=== PATIENT | male | born 1955 | race Caucasian/White ===

== ENCOUNTER 2021-03-20 08:51 | Emergency (ER) | payer OTHER, SELFPAY ==
--- NOTE | ~2021-03-20 | XR_ITS ---
EXAMINATION: XR foot RT min 3V DATE: 03/20/2021 09:20 INDICATION: Right first toe pain TECHNIQUE: Dorsoplantar, lateral, and 2 oblique views of the right foot were obtained. COMPARISON: None. FINDINGS: Bone alignment is normal. There is no fracture. There is mild osteoarthritis at the first m etatarsophalangeal and interphalangeal joints. The soft tissues are unremarkable. IMPRESSION: 1. Mild osteoarthritis. Reviewed, dictated and finalized at location A. IMPRESSION: 1. Mild osteoarthritis.
[2021-03-20 08:59] VITALS: BP 133/73; PULSE 65; RESP 16; TEMP 36.5; O2SAT 99
--- NOTE | 2021-03-20 08:59 | ED.GENADULT ---
HPI - General Adult General Chief complaint: Extremity Injury, Lower Stated complaint: right foot pain Source: patient and RN notes reviewed Mode of arrival: ambulatory Limitations: no limitations History of Present Illness HPI narrative: 65-year-old male presents today with complaints of right foot pain for the past 3 days. ?Kishor reports increasing pain daily, worst today being unable to wear regular shoes causing him to seek care. ?Tylenol 1,000mg three times a day, last taken on 03/19/2021 without relief. ?Hurts to bear weight. ?No radiation of pain. ?No numbness, tingling, or loss of mobility. ?Exacerbating factor applying weight. ?Denies inability to bear weight. ?Denies discoloration. ?Denies suspect foreign body. ?Denies fever or chills. ?Remains active. ?The patient reports he has not been diagnosed with COVID-19. ?The patient reports he is not waiting for the results of a COVID-19 lab test. The patient reports he does not have chills, weakness, or fatigue. ?The patient reports he does not have a new or worsening cough or shortness of breath. ?Denies chest pain. ?The patient reports he does not have any rhinorrhea, congestion, loss of taste or smell, sore throat, nausea, vomiting, abdominal pain, and diarrhea. ?Tolerating po intake well. ?Denies recent traveling. ?Denies concerns for COVID-19 or exposures. ?At this time, the patient is not suspected of having COVID-19. Some parts of this dictation were generated by voice recognition software and may contain typographical and/or grammatical inaccuracies. Related Data Home Medications Medication Instructions Recorded Confirmed amlodipine 1 mg PO DAILY 03/20/21 03/20/21 doxazosin 1 mg PO DAILY 03/20/21 03/20/21 fluticasone propion-salmeterol 1 inh INHALATION BID 03/20/21 03/20/21 [Advair Diskus] metoprolol succinate 1 mg PO DAILY 03/20/21 03/20/21 quinapril 1 mg PO DAILY 03/20/21 03/20/21 rivaroxaban [Xarelto] 1 mg PO DAILY 03/20/21 03/20/21 Allergies Allergy/AdvReac Type Severity Reaction Status Date / Time iodine Allergy Mild UNKNOWN Verified 03/20/21 09:05 sulfamethoxazole Allergy Unknown RASH ON Verified 03/20/21 09:05 PALMS trimethoprim Allergy Unknown RASH ON Verified 03/20/21 09:05 PALMS Contrast Media Allergy Mild Dizziness Uncoded 03/20/21 09:05 Review of Systems Review of Systems: Narrative: CONSTITUTIONAL: Denies fever, chills, sweats. EYES: Denies visual changes, redness, discharge. ENT: Denies rhinorrhea, congestion, sore throat, otalgia. CARDIOVASCULAR: Denies chest pain, palpitations, edema. RESPIRATORY: Denies dyspnea, wheezing, cough. GASTROINTESTINAL: Denies abdominal pain, nausea, vomiting, diarrhea. SKIN: Denies rash or itching. MUSCULOSKELETAL: Denies acute back pain or myalgia. Complains of pain right foot. NEUROLOGIC: Denies numbness or focal weakness. PSYCHIATRIC: Denies anxiety or depression. All other systems reviewed are negative, except as documented in HPI and below. [facility] Past Medical History Medical History (Updated 03/20/21 @ 09:41 by YANELI Das) Anxiety Atypical chest pain COPD (chronic obstructive pulmonary disease) Coronary artery disease Hyperthyroidism Mixed hyperlipidemia Paroxysmal atrial fibrillation Prediabetes Tobacco abuse Surgical History Surgical History H/O colonoscopy Social History Social History Smoking status: Current every day smoker Tobacco type: cigarettes Second hand tobacco smoke exposure: Yes (spouse) Alcohol intake: never Substance use: never Substance use type: does not use Living arrangements: with family Occupation/Education: retired Gender identity (if verbalized by the patient): Male Sexual Orientation (if Verbalized by the Patient): Straight or Heterosexual Comments At time of signature, agree with the nurse past medical, surgi
[2021-03-20] MEDS: KETOROLAC (*BKC) 60 MG/2 ML VIAL IM (09:19)
== END 2021-03-20 09:50 | disposition home or self-care (01) ==
PROVIDERS: Emergency Provider Nurse Practitioner Family; PCP Family Medicine
DX: M10.9 Gout, unspecified (principal); M19.071 Primary osteoarthritis, right ankle and foot; F17.210 Nicotine dependence, cigarettes, uncomplicated; J44.9 Chronic obstructive pulmonary disease, unspecified; I25.10 Atherosclerotic heart disease of native coronary artery without angina pectoris; E05.90 Thyrotoxicosis, unspecified without thyrotoxic crisis or storm; I48.0 Paroxysmal atrial fibrillation; R73.03 Prediabetes
CPT/HCPCS: 73630; 96372; 99213; G0463; J1885

== ENCOUNTER 2021-04-18 13:03 | Emergency (ER) | payer OTHER, SELFPAY ==
[2021-04-18 13:25] VITALS: BP 126/55; PULSE 63; RESP 16; TEMP 35.9; O2SAT 98
--- NOTE | 2021-04-18 13:26 | ED.GENADULT ---
HPI - General Adult General Chief complaint: Back Pain/Injury Stated complaint: lower back pain Time Seen by Provider: 04/18/21 13:15 Source: patient and RN notes reviewed Mode of arrival: ambulatory Limitations: no limitations History of Present Illness HPI narrative: 65-year-old male presents with complaints of intermittent right lower back pain for the past 30 days. ? Kishor reports increasing constant back pain over the past 2 weeks due to increasing heaving lifting while moving and fixing home. Tylenol, physician primary care sports medicine, and back massages with little to no relief. ?Denies new injuries or falls. Denies radiating pain, numbness, or tingling. Denies fever or chills. No upper or lower extremity pain or weakness. ?Exacerbating factors consist of heavy lifting, prolonged standing, and bending. Denies problems with urinating or having a bowel movement, LBM on 04/17/2021 per patient and normal. ?No flank pain or hematuria or dysuria. The patient reports he has not been diagnosed with COVID-19. The patient reports he is not waiting for the results of a COVID-19 lab test. The patient reports he does not have chills, weakness, or fatigue. The patient reports he does not have a new or worsening cough or shortness of breath. Denies chest pain. The patient reports he does not have any rhinorrhea, congestion, loss of taste or smell, sore throat, nausea, vomiting, abdominal pain, and diarrhea. Tolerating po intake well. Denies recent traveling. Denies concerns for COVID-19 or exposures. At this time, the patient is not suspected of having COVID-19. Some parts of this dictation were generated by voice recognition software and may contain typographical and/or grammatical inaccuracies. Related Data Home Medications Medication Instructions Recorded Confirmed amlodipine 1 mg PO DAILY 03/20/21 03/23/21 doxazosin 1 mg PO DAILY 03/20/21 03/23/21 fluticasone propion-salmeterol 1 inh INHALATION BID 03/20/21 03/23/21 [Advair Diskus] metoprolol succinate 1 mg PO DAILY 03/20/21 03/23/21 quinapril 1 mg PO DAILY 03/20/21 03/23/21 rivaroxaban 20 mg tablet 20 mg PO DAILY tablet 03/23/21 03/23/21 clonazepam 07/18/21 Allergies Allergy/AdvReac Type Severity Reaction Status Date / Time iodine Allergy Mild UNKNOWN Verified 03/20/21 09:05 sulfamethoxazole Allergy Unknown RASH ON Verified 03/20/21 09:05 PALMS trimethoprim Allergy Unknown RASH ON Verified 03/20/21 09:05 PALMS Contrast Media Allergy Mild Dizziness Uncoded 03/20/21 09:05 Review of Systems Review of Systems: Narrative: CONSTITUTIONAL: Denies fever, chills, sweats. EYES: Denies visual changes, redness, discharge. ENT: Denies rhinorrhea, congestion, sore throat, otalgia. CARDIOVASCULAR: Denies chest pain, palpitations, edema. RESPIRATORY: Denies dyspnea, wheezing, cough. GASTROINTESTINAL: Denies abdominal pain, nausea, vomiting, diarrhea. GENITOURINARY: Denies dysuria, hematuria, abnormal discharge. SKIN: Denies rash or itching. MUSCULOSKELETAL: Complaints of right lower back pain. Denies joint pain or myalgia. NEUROLOGIC: Denies numbness or focal weakness. PSYCHIATRIC: Denies anxiety or depression. All systems reviewed & are unremarkable except as noted in HPI and below. [facility], [facility] Past Medical History Medical History Anxiety Atypical chest pain COPD (chronic obstructive pulmonary disease) Coronary artery disease Hyperthyroidism Mixed hyperlipidemia Paroxysmal atrial fibrillation Prediabetes Tobacco abuse Surgical History Surgical History H/O colonoscopy Family History Family History (Updated 04/18/21 @ 13:58 by YANELI Das) Mother Lung cancer Father , [place] age 50 Acute myocardial infarction, Onset Age: 50 Social History Social History Tobacco type: cigare
[2021-04-18] MEDS: KETOROLAC (*BKC) 60 MG/2 ML VIAL IM (13:52)
== END 2021-04-18 14:13 | disposition home or self-care (01) ==
PROVIDERS: Emergency Provider Nurse Practitioner Family; PCP Family Medicine
DX: M54.5 Low back pain (principal); J44.9 Chronic obstructive pulmonary disease, unspecified; I25.10 Atherosclerotic heart disease of native coronary artery without angina pectoris; E05.90 Thyrotoxicosis, unspecified without thyrotoxic crisis or storm; E78.2 Mixed hyperlipidemia; I48.0 Paroxysmal atrial fibrillation
CPT/HCPCS: 96372; 99213; G0463; J1885

== ENCOUNTER 2021-07-14 08:24 | Outpatient (CLI) | payer MEDICARE, SELFPAY ==
--- NOTE | ~2021-07-14 | US_ITS ---
EXAMINATION: US aorta [facility] scrn DATE: 07/14/2021 09:05 INDICATION: Abdominal aortic aneurysm screening with risk factors of prior smoking and hypertension TECHNIQUE: Grayscale, color Doppler, and pulsed Doppler images of the aorta and common iliac arteries were obtained. COMPARISON: None. FINDINGS: The proximal aorta measures 2.5 cm in maximal AP diameter. The mid aorta measures 2.1 cm. The distal aorta measures 1.7 cm. The right common iliac artery measures 8 mm. The left common iliac artery bran ures 7 mm. IMPRESSION: 1. Normal caliber abdominal aorta. Reviewed, dictated and finalized at location A.
--- NOTE | ~2021-07-14 | CT_ITS ---
EXAMINATION:CT lung screening DATE: 07/14/2021 09:08 INDICATION: Personal history of tobacco dependence. Current smoker with 50 pack year history. TECHNIQUE: Computed tomography (CT) of the chest was performed without intravenous contrast. Automate d exposure control and iterative reconstruction technique were employed. The dose-length product (DLP ) was 125.13 mGy-cm. COMPARISON: Chest CT 09/06/2012 FINDINGS: There is moderate emphysema. There is a 2 mm nodule in left lower lobe. No pleural effusion . The heart size is normal. There are coronary artery calcifications. No pericardial effusion. There is mild thoracic spondylosis. There is a benign bone island in T11 vertebral body. IMPRESSION: 1. Lung-RADS category 2: Benign appearance or behavior. Continue annual screening with noncontrast lo w-dose chest CT in 12 months. Reviewed, dictated and finalized at location A. IMPRESSION: 1. Lung-RADS category 2: Benign appearance or behavior. Continue annual screeni ng with noncontrast low-dose chest CT in 12 months.
== END 2021-07-14 08:25 | disposition home or self-care (01) ==
LOC: ANHIMG 08:27
PROVIDERS: PCP Family Medicine; Visit Provider Family Medicine
DX: Z12.2 Encounter for screening for malignant neoplasm of respiratory organs (principal); Z13.6 Encounter for screening for cardiovascular disorders; Z87.891 Personal history of nicotine dependence
CPT/HCPCS: 71271; 76706

== ENCOUNTER 2021-07-30 01:48 | Day surgery (SDC) | payer MEDICARE, SELFPAY ==
[2021-07-15 15:10] VITALS: BMI 24.3
[2021-07-30 08:13] VITALS: BP 110/61; PULSE 66; RESP 16; TEMP 36.6; O2SAT 98; BMI 24.0
--- NOTE | 2021-07-30 08:21 | WPDANESEPPF ---
Anes - Initial Pre Proc Eval Procedure: Operation Date: 07/30/21 09:00 Proposed Procedures p Screening Colonoscopy - Alfred Sena MD Date/Time: 07/30/21 08:21 Surgeon: Alfred Sena MD Pre Op Diagnosis: neoplasm screening Patient Data Age: 66 Gender: M Height: 1.8 m Weight: 78.1 kg Last Vital Signs Temp 36.6 C 07/30/21 08:13 Pulse 66 07/30/21 08:13 Resp 16 07/30/21 08:13 BP 110/61 07/30/21 08:13 Pulse Ox 98 07/30/21 08:13 Allergies Allergy/AdvReac Type Severity Reaction Status Date / Time iodine Allergy Intermediate Hypotension Verified 07/30/21 08:12 sulfamethoxazole Allergy Intermediate RASH ON Verified 07/30/21 08:12 PALMS trimethoprim Allergy Intermediate RASH ON Verified 07/30/21 08:12 PALMS Contrast Media Allergy Intermediate Hypotension Uncoded 07/30/21 08:12 Home Medications Medication Instructions Recorded Confirmed Type amlodipine 10 mg PO DAILY 03/20/21 07/30/21 History doxazosin 2 mg PO DAILY 03/20/21 07/30/21 History fluticasone propion-salmeterol 1 inh INHALATION BID 03/20/21 07/30/21 History [Advair Diskus] metoprolol succinate 25 mg PO DAILY 03/20/21 07/30/21 History quinapril 40 mg PO DAILY 03/20/21 07/30/21 History rivaroxaban 20 mg tablet 20 mg PO DAILY tablet 03/23/21 07/30/21 History clonazepam 1 mg tablet 0.5 mg PO BID PRN #60 tablet 06/22/21 07/30/21 Rx montelukast 10 mg tablet 10 mg PO DAILY #90 tablet 06/22/21 07/30/21 Rx tiotropium bromide 18 mcg capsule 1 cap INHALATION DAILY #90 inh 06/22/21 07/30/21 Rx with inhalation device Patient hx anesthesia problems: none Family hx anesthesia problems: none Results Review: All pre-operative results and documents have been reviewed as part of the pre-operative evaluation. [facility] Past Medical History Medical History Anxiety Atypical chest pain COPD (chronic obstructive pulmonary disease) Coronary artery disease Encounter for immunization Hyperthyroidism Impacted cerumen of right ear Mixed hyperlipidemia Paroxysmal atrial fibrillation Prediabetes Tobacco abuse Surgical History Surgical History H/O colonoscopy History of gastrointestinal surgery Family History Family History Mother Lung cancer Father , [place] age 50 Acute myocardial infarction, Onset Age: 50 Social History Social History Smoking packs per day: 1 Smoking cigarettes per day: 20.0 Years smoked: 40 Smoking pack-years: 40.00 Smoking status: Light tobacco smoker Tobacco type: cigarettes Second hand tobacco smoke exposure: Yes (spouse) Additional smoking assessment comments: HAS CUT DOWN TO 0.5PK/DAY FOR PAST 5 YEARS Alcohol intake: never Alcohol use details: rarely Substance use: never Substance use type: does not use Gender identity (if verbalized by the patient): Male Sexual Orientation (if Verbalized by the Patient): Straight or Heterosexual Spiritual care concerns: No Anes - Eval Final PreProcedure Day of Procedure 07/30/21 08:21 Patient weight: normal Heart: regular rate and rhythm Lungs: clear to auscultation Airway: Mallampati scale class 1 Neurological: alert and oriented Last oral intake: >/= 8 hours ASA classification: III Emergent: no Anesthetic plan: proceed Anesthesia type and monitoring: general GIVS and standard monitoring Results Review: All pre-operative results and documents have been reviewed as part of the pre-operative evaluation. Informed Consent: The patient's anesthetic plan and its attendant risks and benefits were discussed with the patient/family/POA. Questions were solicited and answers provided to the satisfaction of the patient/family/POA.
[2021-07-30] MEDS: LACTATED RINGERS 1,000 ML 150 ML IV CONT (08:22)
--- NOTE | 2021-07-30 09:00 | WPDGICN ---
Assessment and Plan Assessment and plan (1) Colon cancer screening: Code(s): Z12.11 - Encounter for screening for malignant neoplasm of colon Status: Acute Assessment and Plan: Patient presents for neoplasia is a cancer screening. Appears to be at average risk for colon polyps. (2) History of gastrointestinal surgery: Code(s): Z98.890 - Other specified postprocedural states Status: Acute Assessment and Plan: Patient has a history of sigmoid resection for diverticulitis and colovesical fistula he has done well this surgery was tender 12 years prior to this. GI Consult Note Consult date/time: 07/30/21 09:00 HPI: Kishor Washington is a 66 year old male Presents for screening colonoscopy. Patient reports that 11 or 12 years ago he had sigmoid resection for diverticulitis and colovesical fistula. He has done well since that time. He presents today for routine screening colonoscopy. He reports his current weight appetite bowel movements are normal. Denies abdominal pain. He has had no bleeding. Family history noncontributory. Review of Systems Review of Systems: All systems reviewed & are unremarkable except as noted in HPI and below PMFSH Past Medical History Medical History Anxiety Atypical chest pain COPD (chronic obstructive pulmonary disease) Coronary artery disease Encounter for immunization Hyperthyroidism Impacted cerumen of right ear Mixed hyperlipidemia Paroxysmal atrial fibrillation Prediabetes Tobacco abuse Surgical History Surgical History H/O colonoscopy History of gastrointestinal surgery Family History Family History Mother Lung cancer Father , [place] age 50 Acute myocardial infarction, Onset Age: 50 Social History Social History Smoking packs per day: 1 Smoking cigarettes per day: 20.0 Years smoked: 40 Smoking pack-years: 40.00 Smoking status: Light tobacco smoker Tobacco type: cigarettes Second hand tobacco smoke exposure: Yes (spouse) Additional smoking assessment comments: HAS CUT DOWN TO 0.5PK/DAY FOR PAST 5 YEARS Alcohol intake: never Alcohol use details: rarely Substance use: never Substance use type: does not use Gender identity (if verbalized by the patient): Male Sexual Orientation (if Verbalized by the Patient): Straight or Heterosexual Spiritual care concerns: No Meds Home Medications and Allergies Home Medications Medication Instructions Recorded Confirmed Type amlodipine 10 mg PO DAILY 03/20/21 07/30/21 History doxazosin 2 mg PO DAILY 03/20/21 07/30/21 History fluticasone propion-salmeterol 1 inh INHALATION BID 03/20/21 07/30/21 History [Advair Diskus] metoprolol succinate 25 mg PO DAILY 03/20/21 07/30/21 History quinapril 40 mg PO DAILY 03/20/21 07/30/21 History rivaroxaban 20 mg tablet 20 mg PO DAILY tablet 03/23/21 07/30/21 History clonazepam 1 mg tablet 0.5 mg PO BID PRN #60 tablet 06/22/21 07/30/21 Rx montelukast 10 mg tablet 10 mg PO DAILY #90 tablet 06/22/21 07/30/21 Rx tiotropium bromide 18 mcg capsule 1 cap INHALATION DAILY #90 inh 06/22/21 07/30/21 Rx with inhalation device Allergies Allergy/AdvReac Type Severity Reaction Status Date / Time iodine Allergy Intermediate Hypotension Verified 07/30/21 08:12 sulfamethoxazole Allergy Intermediate RASH ON Verified 07/30/21 08:12 PALMS trimethoprim Allergy Intermediate RASH ON Verified 07/30/21 08:12 PALMS Contrast Media Allergy Intermediate Hypotension Uncoded 07/30/21 08:12 Vital Signs Vital Signs - 24 hr 07/30/21 08:13 Temperature 97.9 F Pulse Rate 66 Respiratory Rate 16 Blood Pressure 110/61 Pulse Oximetry 98 Exam Narrative: Physical exam reveals patient to be alert. V
[2021-07-30 09:25] VITALS: BP 73/44; PULSE 63; RESP 21; O2SAT 95
[2021-07-30 09:35] VITALS: BP 78/46; PULSE 57; RESP 15; O2SAT 98
[2021-07-30 09:40] VITALS: BP 90/45; PULSE 63; RESP 15; O2SAT 98
[2021-07-30 09:45] VITALS: BP 105/61; PULSE 69; RESP 22; O2SAT 98
[2021-07-30 09:55] VITALS: BP 114/65; PULSE 67; RESP 19; O2SAT 100
== END 2021-07-30 10:04 | disposition home or self-care (01) ==
PROVIDERS: PCP Family Medicine; Visit Provider Internal Medicine Gastroenterology
PROC: 0DJD8ZZ Inspection of Lower Intestinal Tract, Via Natural or Artificial Opening Endoscopic (ICD-10-PCS; CPT 45378; principal; 2021-07-30 09:00)
DX: Z12.11 Encounter for screening for malignant neoplasm of colon (principal); K57.30 Diverticulosis of large intestine without perforation or abscess without bleeding; K64.8 Other hemorrhoids; I48.0 Paroxysmal atrial fibrillation; I25.10 Atherosclerotic heart disease of native coronary artery without angina pectoris; J44.9 Chronic obstructive pulmonary disease, unspecified; E78.5 Hyperlipidemia, unspecified; E05.90 Thyrotoxicosis, unspecified without thyrotoxic crisis or storm; R73.03 Prediabetes; F41.9 Anxiety disorder, unspecified; F17.210 Nicotine dependence, cigarettes, uncomplicated; Z90.49 Acquired absence of other specified parts of digestive tract
CPT/HCPCS: G0121; J2704; J7120

== ENCOUNTER 2021-08-09 10:18 | Emergency (ER) | payer MEDICARE, SELFPAY ==
[2021-08-09 10:26] VITALS: BP 136/93; PULSE 69; RESP 16; TEMP 36.4; O2SAT 99
[2021-08-09] MEDS: KETOROLAC (*BKC) 60 MG/2 ML VIAL IM (11:48)
--- NOTE | 2021-08-09 19:22 | ED.BACK ---
HPI - Back Pain/Injury General Chief Complaint: Back Pain/Injury Stated Complaint: Back Pain Time Seen by Provider: 08/09/21 11:04 Source: patient and RN notes reviewed Mode of arrival: ambulatory Limitations: no limitations History of Present Illness HPI Narrative: Patient presents today complaining of pelvic and low back pain. Patient is under the care of urology for some epididymitis. Reports that his urologist has told him to take ibuprofen, which is not helping, and he is supposed to be getting an ultrasound. He has a call out to his urologist regarding the left testicle pain, but since they did not call back in a couple of hours he came in for evaluation. He had googled and it had told him that he may need an antibiotic for his epididymitis. He is now experiencing some low back pain for the past week. Last time he had back pain, he came in and was given a shot of Toradol, which he states relieved his pain for 3 to 4 days. He denies radiation of the pain down his legs. Denies numbness or tingling in his extremities or genitals. Denies loss of bowel or bladder control. He is not currently sexually active and has no concerns for sexually transmitted infections. MD elicited complaint: back pain Related Data Home Medications Medication Instructions Recorded Confirmed amlodipine 10 mg PO DAILY 03/20/21 08/09/21 doxazosin 2 mg PO DAILY 03/20/21 08/09/21 fluticasone propion-salmeterol 1 inh INHALATION BID 03/20/21 08/09/21 [Advair Diskus] metoprolol succinate 25 mg PO DAILY 03/20/21 08/09/21 rivaroxaban 20 mg tablet 20 mg PO DAILY tablet 03/23/21 08/09/21 Allergies Allergy/AdvReac Type Severity Reaction Status Date / Time iodine Allergy Intermediate Hypotension Verified 08/09/21 10:58 sulfamethoxazole Allergy Intermediate RASH ON Verified 08/09/21 10:58 PALMS trimethoprim Allergy Intermediate RASH ON Verified 08/09/21 10:58 PALMS Contrast Media Allergy Intermediate Hypotension Uncoded 07/30/21 08:12 Review of Systems Review of Systems: CONSTITUTIONAL: Denies body aches, fever, chills, or sweats. EYES: Denies visual changes, redness, or discharge. ENT: Denies rhinorrhea, congestion, sore throat, or otalgia. CARDIOVASCULAR: Denies chest pain, palpitations, or edema. RESPIRATORY: Denies cough or dyspnea. GASTROINTESTINAL: Denies abdominal pain, nausea, vomiting, or diarrhea.+ Pelvic pain, left testicle pain GENITOURINARY: Denies dysuria or hematuria. SKIN: Denies rash, itching, or wounds. MUSCULOSKELETAL: Denies joint pain, or myalgia.+ Back pain NEUROLOGIC: Denies headache, numbness, tingling, or weakness. PSYCH: Denies depression or anxiety. [facility] Past Medical History Medical History Anxiety Atypical chest pain COPD (chronic obstructive pulmonary disease) Coronary artery disease Encounter for immunization Hyperthyroidism Impacted cerumen of right ear Mixed hyperlipidemia Paroxysmal atrial fibrillation Prediabetes Tobacco abuse Surgical History Surgical History H/O colonoscopy History of gastrointestinal surgery Family History Family History Mother Lung cancer Father , [place] age 50 Acute myocardial infarction, Onset Age: 50 Social History Social History Smoking packs per day: 1 Smoking cigarettes per day: 20.0 Years smoked: 40 Smoking pack-years: 40.00 Smoking status: Light tobacco smoker Tobacco type: cigarettes Second hand tobacco smoke exposure: Yes (spouse) Additional smoking assessment comments: HAS CUT DOWN TO 0.5PK/DAY FOR PAST 5 YEARS Alcohol intake: never Alcohol use details: rarely Substance use: never Substance use type: does not use Gender identity (if verbalized by the patient): Male Sexua
== END 2021-08-09 11:55 | disposition home or self-care (01) ==
PROVIDERS: Emergency Provider Nurse Practitioner; PCP Family Medicine
DX: M54.50 Low back pain, unspecified (principal); G89.29 Other chronic pain; J44.9 Chronic obstructive pulmonary disease, unspecified; F17.210 Nicotine dependence, cigarettes, uncomplicated; I25.10 Atherosclerotic heart disease of native coronary artery without angina pectoris; E78.2 Mixed hyperlipidemia; I48.0 Paroxysmal atrial fibrillation; R73.03 Prediabetes; E05.90 Thyrotoxicosis, unspecified without thyrotoxic crisis or storm
CPT/HCPCS: 96372; 99213; G0463; J1885

== ENCOUNTER 2022-02-01 13:55 | Outpatient (CLI) | payer MEDICARE, SELFPAY ==
--- NOTE | 2022-02-01 16:38 | WPDPFTINT ---
PFT Procedure Performed PFT Procedure Performed Plethysmography (Lung Vol) Diffusing Cap (DLCO) Flow Vol Loop Spirometry w/o Bronchodil PFT Interpretation This is a pulmonary function test with spirometry, plethysmography and diffusing capacity. The test was performed and results interpreted in accordance with the 2019 and 2005 ATS/ERS Task Force guidelines respectively using the Global Lung Function Initiative-2012 reference equations. Patient demonstrated good effort and cooperation. Reproducibility criteria were met. The quality of the spirometry maneuver was Grade A. Findings: Spirometry: There is decreased maximal expiratory airflow at low lung volumes with a concave expiratory flow tracing. The contour the inspiratory flow tracing is normal. The FVC is 4.50 L, 101% predicted. The FEV1 is 2.84 L, 83% predicted. The FEV1: FVC ratio 63%. Plethysmography: The total lung capacity is 6.44 L, 92% predicted. The functional residual capacity is 3.44 L, 93% predicted. The residual volume is 181.84 L, 78% predicted. Diffusing capacity: The diffusing capacity uncorrected for hemoglobin and carboxyhemoglobin is 16.4, 60% predicted. The diffusing capacity adjusted for alveolar volume is 2.95, 72% predicted. In comparison to previous pulmonary function testing on 02/11 2016 the FVC is unchanged from 4.69 L to 4.50 L. The FEV1 is unchanged from 2.80 L to 2.84 L. The total lung capacity is decreased from 8.10 L to 6.44 L. The functional residual capacity is decreased from 4.98 L to 3.44 L. The residual volume is decreased from 2.98 L to 1.84 L. The diffusing capacity unadjusted for hemoglobin and carboxyhemoglobin is unchanged from 18.7 to 16.4. The diffusing capacity adjusted for alveolar volume is unchanged from 3.16 to 2.95. Impression: There is a mild obstructive abnormality with a normal FEV1. The lung volumes are normal. The diffusing capacity unadjusted for hemoglobin is moderately decreased and normalizes when adjusted for alveolar volume. In comparison to previous pulmonary function test on 02/11/2016 there has been a greater than anticipated time dependent decrease in total lung capacity, functional residual capacity, and residual volume with no change in the FVC, FEV1, or diffusing capacity. Clinical correlation is recommended. There are no prior studies for comparison
== END 2022-02-01 13:56 | disposition home or self-care (01) ==
LOC: ANHPFT 14:01
PROVIDERS: PCP Family Medicine; Visit Provider Internal Medicine Cardiovascular Disease
DX: J44.9 Chronic obstructive pulmonary disease, unspecified (principal); R06.00 Dyspnea, unspecified; Z72.0 Tobacco use
CPT/HCPCS: 94375; 94726; 94729

== ENCOUNTER 2022-04-07 12:15 | Outpatient (CLI) | payer MEDICARE, SELFPAY ==
--- NOTE | ~2022-04-07 | CT_ITS ---
EXAMINATION: CT chest high resolution wo pa DATE: 04/07/2022 13:40 INDICATION: Emphysema, history of pulmonary fibrosis TECHNIQUE: Computed tomography (CT) of the chest was performed without intravenous contrast. The dose -length product (DLP) was 199.02 mGy-cm. Automated exposure control and iterative reconstruction tech [employer] were employed. COMPARISON: 07/14/2021 FINDINGS: There is moderate emphysema. The lungs are free of acute opacities. No changes related to p ulmonary fibrosis or chronic interstitial lung disease are identified. No pleural effusion or pneumot horax. No pathologically enlarged thoracic lymph nodes are identified. The heart size is normal. Calc ified coronary artery atherosclerosis is noted. There is mild thoracic spondylosis. IMPRESSION: 1. Moderate emphysema. Reviewed, dictated and finalized at location B. IMPRESSION: 1. Moderate emphysema.
--- NOTE | 2022-04-07 16:28 | WPDSIXMINUTE ---
Six Minute Walk Procedure Procedure Performed Pulmonary Stress Test (6 min walk) Six Minute Walk Six Minute Walk: This is a 6 minute walk test. The test was performed and interpreted in accordance with the 2014 ERS/ATS task force guidelines. Findings: The patient's resting room air oxygen saturation measured by pulse oximetry was 97% and heart rate was 57 bpm. Patient ambulated for 152 meters and oxygen saturation remained 96 to 98%. Heart rate at the end of the study was 69 bpm. The patient did not qualify for supplemental oxygen at rest or with ambulation. There are no prior studies for comparison.
== END 2022-04-07 12:16 | disposition home or self-care (01) ==
PROVIDERS: PCP Family Medicine; Visit Provider Physician Assistant
DX: J44.9 Chronic obstructive pulmonary disease, unspecified (principal); J43.9 Emphysema, unspecified; J84.10 Pulmonary fibrosis, unspecified
CPT/HCPCS: 71250; 94618

== ENCOUNTER 2022-09-24 11:57 | Emergency (ER) | payer MEDICARE, SELFPAY ==
[2022-09-24 12:07] VITALS: BP 143/58; PULSE 61; RESP 16; TEMP 36.2; O2SAT 99
--- NOTE | 2022-09-24 13:02 | ED.GENADULT ---
HPI - General Adult General Chief complaint: Ear Stated complaint: Left Ear Irritation Time Seen by Provider: 09/24/22 13:03 Source: patient, RN notes reviewed and old records reviewed Mode of arrival: ambulatory Limitations: no limitations History of Present Illness HPI narrative: 67-year-old male presents to the [facility] with swelling to posterior left ear, left ear pain. Also complains of a irritated area to the left scalp. Noticed it when he took a shower this morning. No treatment prior to arrival Related Data Home Medications Medication Instructions Recorded Confirmed amlodipine 10 mg tablet 10 mg PO DAILY 03/20/21 06/30/22 doxazosin 2 mg tablet 2 mg PO DAILY 03/20/21 06/30/22 metoprolol succinate 25 mg 25 mg PO DAILY 03/20/21 06/30/22 tablet,extended release 24 hr rivaroxaban 20 mg tablet (Xarelto) 20 mg PO DAILY 03/23/21 06/30/22 Allergies Allergy/AdvReac Type Severity Reaction Status Date / Time iodine Allergy Intermediate Hypotension Verified 09/24/22 13:07 sulfamethoxazole Allergy Intermediate RASH ON Verified 09/24/22 13:07 PALMS trimethoprim Allergy Intermediate RASH ON Verified 09/24/22 13:07 PALMS Contrast Media Allergy Intermediate Hypotension Uncoded 09/24/22 13:07 Review of Systems Review of Systems: All systems reviewed & are unremarkable except as noted in HPI and below Constitutional: Constitutional: Reports no additional constitutional complaints Eyes: Eyes: Reports no additional eye complaints ENT: Reports as per HPI Cardiovascular: Cardiovascular: Reports no additional cardiovascular complaints, Denies chest pain and Denies dyspnea Respiratory: Respiratory: Reports no additional respiratory complaints, Denies chest congestion, Denies cough and Denies dyspnea Gastrointestinal: Gastrointestinal: Reports no additional gastrointestinal complaints, Denies abdominal pain, Denies nausea and Denies vomiting Musculoskeletal: Musculoskeletal: Reports no additional musculoskeletal complaints Integumentary/Breasts: Skin/Breast: Reports system reviewed and no additional complaints, except as docu Neurologic: Reports system reviewed and no additional complaints, except as documented Psychiatric: Psychiatric: Reports no additional psychiatric complaints Allergic/Immunologic: Allergic/Immunologic: Reports no additional allergic/immunologic complaints PMFSH Past Medical History Medical History (Updated 09/24/22 @ 13:29 by Shelby Lazcano APRN) Allergic rhinitis Anxiety Atypical chest pain COPD (chronic obstructive pulmonary disease) Coronary artery disease Emphysema lung Encounter for immunization Hyperthyroidism Impacted cerumen of right ear Interstitial pulmonary fibrosis Mixed hyperlipidemia Obstructive sleep apnea Paroxysmal atrial fibrillation Prediabetes Tobacco abuse Surgical History Surgical History H/O colonoscopy History of gastrointestinal surgery Family History Family History Mother Lung cancer Father , [place] age 50 Acute myocardial infarction, Onset Age: 50 Social History Social History Smoking packs per day: 0.5 Smoking cigarettes per day: 10.0 Years smoked: 50 Smoking pack-years: 25.00 Smoking status: Current every day smoker Tobacco type: cigarettes Second hand tobacco smoke exposure: Yes (spouse) Alcohol intake: never Alcohol use details: rarely Substance use: never Substance use type: does not use Gender identity (if verbalized by the patient): Male Sexual Orientation (if Verbalized by the Patient): Straight or Heterosexual Spiritual care concerns: No Comments At the time of my signature, I reviewed and agree with the nursing past medical, surgical, social, and family history. There is no relevant family history pertinent to the pat
== END 2022-09-24 13:42 | disposition home or self-care (01) ==
PROVIDERS: Emergency Provider Nurse Practitioner; PCP Family Medicine
DX: H66.92 Otitis media, unspecified, left ear (principal); L98.9 Disorder of the skin and subcutaneous tissue, unspecified; J43.9 Emphysema, unspecified; I25.10 Atherosclerotic heart disease of native coronary artery without angina pectoris; E78.2 Mixed hyperlipidemia; I48.0 Paroxysmal atrial fibrillation; F17.210 Nicotine dependence, cigarettes, uncomplicated; Z20.822 Contact with and (suspected) exposure to COVID-19
CPT/HCPCS: 87426; 99213; C9803; G0463

== ENCOUNTER 2023-10-05 14:55 | Outpatient (CLI) | payer MEDICARE, SELFPAY ==
--- NOTE | ~2023-10-05 | CT_ITS ---
EXAMINATION:CT lung screening DATE: 10/05/2023 15:17 INDICATION: Personal history of nicotine dependence. Smoker who quit 1 year ago with 75 pack year his tory. TECHNIQUE: Computed tomography (CT) of the chest was performed without intravenous contrast. Automate d exposure control and iterative reconstruction technique were employed. The dose-length product (DLP ) was 117.75 mGy-cm. COMPARISON: Chest CT 04/07/2022 FINDINGS: There is moderate emphysema. There is a 9 mm peripheral nodule in right upper lobe that pre viously measured 7 mm. The morphology favors scarring over malignancy. No pleural effusion. The heart size is normal. There are coronary artery calcifications. No pericardial effusion. There is a small sliding hiatal hernia. There is mild thoracic spondylosis. IMPRESSION: 1. Lung-RADS category 4B: Very suspicious. PET/CT is recommended. Reviewed, dictated and finalized at location E. CATION CARE MANAGER
== END 2023-10-05 14:56 | disposition home or self-care (01) ==
PROVIDERS: PCP Family Medicine; Visit Provider Internal Medicine Critical Care Medicine
DX: Z12.2 Encounter for screening for malignant neoplasm of respiratory organs (principal); R91.8 Other nonspecific abnormal finding of lung field; Z87.891 Personal history of nicotine dependence
CPT/HCPCS: 71271

== ENCOUNTER 2023-10-17 11:33 | Outpatient (CLI) | payer MEDICARE, SELFPAY ==
--- NOTE | ~2023-10-17 | PE_ITS ---
EXAMINATION: PET skull to mid thigh DATE: 10/17/2023 14:24 INDICATION: Solitary pulmonary nodule TECHNIQUE: Blood glucose level was 96 mg/dL. 6.823 mCi of 18-fluorodeoxyglucose (18-FDG) was administ ered i.v. Low dose computed tomography (CT) images were acquired from the base of the brain to the pr oximal thighs for attenuation correction and anatomic localization. Positron emission tomography (PET ) images were acquired in the same distribution beginning 66 minutes after injection. Images includin g fused PET/CT images were reconstructed in axial, coronal, and sagittal planes. Automated exposure c ontrol technique was employed. The dose-length product was 1149.51mGy-cm. COMPARISON: CT dated 10/05/2023 FINDINGS: Head/neck: There is symmetric increased activity in the oral cavity, palatine tonsils, temporalis muscles,, long us capitis muscles, laryngeal muscles and ocular muscles without CT correlate, likely physiologic. No pathologically enlarged cervical lymphadenopathy or suspicious foci of increased FDG uptake in the v isualized head or neck. Chest: Again seen is moderate emphysema with some peripheral atelectasis and pleural parenchymal scarring. T he previously noted enlarging pleural-based nodule at the anterior right upper lobe has nearly resolv ed now appearing more as a thin linear band of atelectasis/scarring. There is no FDG uptake in this r egion. No other suspicious pulmonary nodules, pneumonia, pulmonary edema or pleural effusion. Heart s ize normal. Atherosclerotic coronary artery calcific location. No pericardial effusion. Thoracic aort a is normal in caliber. No pathologically enlarged or FDG avid thoracic lymphadenopathy. Small slidi ng-type hiatal hernia. Asymmetric mild uptake at the bilateral teres minor tendons without radiologic correlate likely physiologic. Abdomen/pelvis/proximal thighs: Physiologic renal accumulation and excretion of FDG activity in the kidneys, bladder and along portio ns of ureters. Normal degree and heterogenous pattern of increased uptake throughout the liver withou t radiologic correlate or dominant FDG avid lesion. The gallbladder, pancreas, spleen and bilateral a drenal glands are normal. Mild uptake scattered throughout the bowels without radiologic correlate, a lso likely physiologic. Normal appendix. No free intraperitoneal gas or fluid. Postoperative change o f prior left inguinal hernia repair. No other abnormal foci of increased FDG uptake or pathologically enlarged lymphadenopathy in the abdomen, pelvis or proximal thighs. Musculoskeletal: Relatively symmetric mild likely physiologic uptake in the musculature of the posterior upper arms mo st prominent at the forearms. No suspicious lytic, blastic or FDG avid bone lesions. IMPRESSION: 1. Thin linear band of atelectasis/scarring without evident FDG activity at the site of the previous noted pleural-based nodule which was likely related to additional more focal atelectasis. No suspicio us pulmonary nodules or other FDG avid lesions in the neck, chest, abdomen or pelvis to suggest malig yvette/metastatic disease. Reviewed, dictated and finalized at location A. TY HOME DEMONSTRATION AGENT IMPRESSION: 1. Thin linear band of atelectasis/scarring without evident FDG activity at the site of the previous noted pleural-based nodule which was likely related to ad ditional more focal atelectasis. No suspicious pulmonary nodules or other FDG a vid lesions in the neck, chest, abdomen or pelvis to suggest malignancy/metasta tic disease.
[2023-10-17 12:16] LABS: Glucose Point of Care 96 mg/dl (65-105)
== END 2023-10-17 11:34 | disposition home or self-care (01) ==
PROVIDERS: PCP Family Medicine; Visit Provider Internal Medicine Critical Care Medicine
DX: R91.1 Solitary pulmonary nodule (principal)
CPT/HCPCS: 78815; A9552

== ENCOUNTER 2023-10-27 16:21 | Outpatient (CLI) | payer MEDICARE, SELFPAY ==
--- NOTE | ~2023-10-27 | US_ITS ---
EXAMINATION: US renal BI DATE: 10/27/2023 17:05 INDICATION: Disorder of kidneys and ureters TECHNIQUE: Multiple ultrasound grayscale images of the kidneys were obtained. COMPARISON: None. FINDINGS: The right kidney measures 10.4 x 5.6 x 4.8 cm. The left kidney measures 10.6 x 5.4 x 6.0 cm. The kidn eys demonstrate normal echogenicity. There is no hydronephrosis in either kidney. No stones identifi ed. The bladder is incompletely distended which limits evaluation. IMPRESSION: 1. Normal kidneys without hydronephrosis. Reviewed, dictated and finalized at location A. UCTION OPERATIONS MANAGER
== END 2023-10-27 16:22 | disposition home or self-care (01) ==
LOC: ANHIMG 16:23
PROVIDERS: PCP Family Medicine; Visit Provider Family Medicine
DX: N18.9 Chronic kidney disease, unspecified (principal)
CPT/HCPCS: 76775

== ENCOUNTER 2023-12-25 15:55 | Outpatient (CLI) | payer MEDICARE, SELFPAY ==
[2023-12-25 16:10] LABS: Basophils Absolute Auto 0.1 K/mm3 (0.0-0.1); Basophils Percent Auto 1.4 % (0.2-1.2); Eosinophils Absolute Auto 0.1 K/mm3 (0-0.3); Eosinophils Percent Auto 1.9 % (0-4.4); Hematocrit 37.3 % (42.0-52.0); Hemoglobin 12.6 g/dL (14.0-18.0); Immature Granulocyte Absolute 0.05 K/mm3 (0.00-0.031); Immature Granulocyte Percent A 0.8 % (0-0.5); Lymphocytes Percent Auto 33.6 % (18.3-44.2); Mean Corpuscular HGB Conc 33.8 g/dl (32-36); Mean Corpuscular Hemoglobin 32.8 pg (26-34); Mean Corpuscular Volume 97.1 fl (80-100); Mean Platelet Volume 9.5 fl (7.4-10.4); Monocytes Absolute Auto 0.7 K/mm3 (0.1-0.6); Monocytes Percent Auto 10.6 % (2.6-8.5); Neutrophils Absolute Auto 3.2 K/mm3 (1.3-6.7); Neutrophils Percent Auto 51.7 % (45.5-73.1); Platelet Count Result 221 k/mm3 (150-375); Red Blood Count 3.84 M/mm3 (4.6-6.20); Red Cell Distribution Width 12.8 % (11.5-14.5); White Blood Count 6.3 K/mm3 (4.5-10.0)
[2023-12-25 19:28] LABS: Alanine Aminotransferase 24 U/L (6-50); Albumin Level 4.4 g/dL (3.5-5.1); Alkaline Phosphatase 47 U/L (38-126); Anion Gap 6 mmol/L (8-16); Aspartate Amino Transferase 27 U/L (17-59); Bilirubin,Total 0.6 mg/dL (0.2-1.3); Blood Urea Nitrogen 28 mg/dL (9-20); Calcium 9.2 mg/dL (8.4-10.2); Carbon Dioxide 27 mmol/L (22-30); Chloride 102 mmol/L (98-107); Estimated Glomerular Filt Rate 55; Glucose 84 mg/dL (65-110); Potassium 4.8 mmol/L (3.4-5.0); Sodium 135 mmol/L (137-145)
[2023-12-25 20:45] LABS: Immunoglobulin A 377 mg/dL (70-400); Immunoglobulin G 1245 mg/dL (700-1600); Immunoglobulin M 328 mg/dL (40-230)
[2023-12-27 13:00] LABS: Albumin 4.1 g/dL (3.8-4.8); Alpha 1 Globulin 0.3 g/dL (0.2-0.3); Alpha 2 Globulin 0.7 g/dL (0.5-0.9); Beta 1 Globulin 0.5 g/dL (0.4-0.6); Gamma Globulin 1.2 g/dL (0.8-1.7); Protein, Total 7.1 g/dL (6.1-8.1)
[2023-12-27 21:57] LABS: Kappa\\Lambda Light Chains 1.81 (0.26-1.65)
== END 2023-12-25 15:56 | disposition home or self-care (01) ==
LOC: ANHLAB 15:56
PROVIDERS: PCP Family Medicine; Visit Provider Internal Medicine Hematology & Oncology
DX: D72.9 Disorder of white blood cells, unspecified (principal)
CPT/HCPCS: 36415; 80053; 82784; 83883; 84155; 84165; 85025

== ENCOUNTER 2024-07-01 10:23 | Outpatient (CLI) | payer MEDICARE, SELFPAY ==
[2024-07-01 10:46] LABS: Basophils Absolute Auto 0.1 K/mm3 (0.0-0.1); Basophils Percent Auto 1.1 % (0.2-1.2); Eosinophils Percent Auto 0.6 % (0-4.4); Hemoglobin 13.1 g/dL (14.0-18.0); Immature Granulocyte Absolute 0.06 K/mm3 (0.00-0.031); Lymphocytes Absolute Auto 1.89 K/mm3 (0.9-3.2); Lymphocytes Percent Auto 30.6 % (18.3-44.2); Mean Corpuscular HGB Conc 33.6 g/dl (32-36); Mean Corpuscular Hemoglobin 32.6 pg (26-34); Mean Platelet Volume 9.6 fl (7.4-10.4); Monocytes Absolute Auto 0.6 K/mm3 (0.1-0.6); Monocytes Percent Auto 9.2 % (2.6-8.5); Neutrophils Absolute Auto 3.5 K/mm3 (1.3-6.7); Neutrophils Percent Auto 57.5 % (45.5-73.1); Platelet Count Result 249 k/mm3 (150-375); Red Blood Count 4.02 M/mm3 (4.6-6.20); Red Cell Distribution Width 12.9 % (11.5-14.5); White Blood Count 6.2 K/mm3 (4.5-10.0)
[2024-07-01 11:30] LABS: Alanine Aminotransferase 24 U/L (6-50); Albumin Level 4.6 g/dL (3.5-5.1); Alkaline Phosphatase 44 U/L (38-126); Anion Gap 11 mmol/L (4-12); Aspartate Amino Transferase 37 U/L (17-59); Bilirubin,Total 0.9 mg/dL (0.2-1.3); Blood Urea Nitrogen 24 mg/dL (9-20); Calcium 9.4 mg/dL (8.4-10.2); Carbon Dioxide 22 mmol/L (22-30); Chloride 104 mmol/L (98-107); Estimated Glomerular Filt Rate 50; Glucose 104 mg/dL (65-110); Potassium 4.4 mmol/L (3.4-5.0); Sodium 137 mmol/L (137-145)
[2024-07-01 11:40] LABS: Immunoglobulin A 305 mg/dL (70-400); Immunoglobulin G 1069 mg/dL (700-1600); Immunoglobulin M 295 mg/dL (40-230)
[2024-07-02 07:04] LABS: Protein, Total 7.3 g/dL (6.1-8.1)
[2024-07-03 11:38] LABS: Kappa\\Lambda Light Chains 2.13 (0.26-1.65); Lambda Light Chain 22.9 mg/L (5.7-26.3)
[2024-07-08 16:28] LABS: Albumin 4.1 g/dL (3.8-4.8); Alpha 1 Globulin 0.3 g/dL (0.2-0.3); Alpha 2 Globulin 0.8 g/dL (0.5-0.9); Beta 1 Globulin 0.5 g/dL (0.4-0.6); Gamma Globulin 1.2 g/dL (0.8-1.7)
== END 2024-07-01 10:24 | disposition home or self-care (01) ==
PROVIDERS: PCP Family Medicine; Visit Provider Internal Medicine Hematology & Oncology
DX: D72.9 Disorder of white blood cells, unspecified (principal)
CPT/HCPCS: 36415; 80053; 82784; 83883; 84155; 84165; 85025

== ENCOUNTER 2024-09-26 15:00 | Outpatient (CLI) | payer MEDICARE, SELFPAY ==
--- NOTE | ~2024-09-26 | MR_ITS ---
EXAMINATION: MR lumbar spine wo con DATE: 09/26/2024 16:22 INDICATION: Dorsalgia, unspecified. TECHNIQUE: Magnetic resonance imaging (MRI) of the lumbar spine was performed without intravenous con trast. Sequences included sagittal T2-weighted FSE, sagittal T2-weighted FS FSE, sagittal T1-weighted FSE, and axial T2-weighted FSE. COMPARISON: Lumbar spine MRI 08/20/2021 FINDINGS: There is 3 mm retrolisthesis of L2 on L3, 4 mm retrolisthesis of L3 on L4, and 3 mm anterol isthesis of L4 and L5. Vertebral body heights are normal. There is mildly decreased disc height at L2 -L3, L3-L4, and L4-L5. The distal spinal cord signal intensity is normal. The conus medullaris is at L1. The following disc levels are specifically discussed: L1-L2: The disc does not extend beyond the endplate margin. There is severe right and moderate left f acet joint osteoarthritis. There is no neural foraminal stenosis. There is no central canal stenosis. L2-L3: The disc is bulging and has an annular fissure. There is severe right and mild left facet join t osteoarthritis. There is mild bilateral neural foraminal stenosis. There is mild central canal sten osis. L3-L4: The disc is bulging and has an annular fissure. There is severe right and mild left facet join t osteoarthritis. There is mild right and moderate left neural foraminal stenosis. There is mild cent ral canal stenosis. L4-L5: The disc is bulging and has an annular fissure. There is severe bilateral facet joint osteoart hritis. There is mild bilateral neural foraminal stenosis. There is moderate central canal stenosis. L5-S1: The disc is bulging. There is severe bilateral facet joint osteoarthritis. There is mild right neural foraminal stenosis. There is no central canal stenosis. IMPRESSION: 1. Moderate lumbar spondylosis, mildly worsened from 08/20/2021. Reviewed, dictated and finalized at location A. FING BRANCH MANAGER
--- NOTE | ~2024-09-26 | XR_ITS ---
EXAMINATION: XR sacroiliac joints min 3V DATE: 09/26/2024 15:47 INDICATION: Sacroiliitis, not elsewhere classified. TECHNIQUE: 3 views of the sacroiliac joints were obtained. COMPARISON: PET/CT 10/17/2023 FINDINGS: Alignment is normal. No fracture. There is moderate osteoarthritis of right sacroiliac join t and mild osteoarthritis of left sacroiliac joint. There is a staple line in the rectum. IMPRESSION: 1. Moderate osteoarthritis of right sacroiliac joint and mild osteoarthritis of left sacroiliac joint . No evidence of inflammatory arthropathy. Reviewed, dictated and finalized at location A. ITALITY SERVICES MANAGER IMPRESSION: 1. Moderate osteoarthritis of right sacroiliac joint and mild osteoarthritis of left sacroiliac joint. No evidence of inflammatory arthropathy.
--- NOTE | ~2024-09-26 | XR_ITS ---
EXAMINATION: XR hip BI 2V w AP pelvis DATE: 09/26/2024 15:47 INDICATION: Right hip pain. TECHNIQUE: An anteroposterior view of the pelvis and 2 views of each hip were obtained. COMPARISON: None. FINDINGS: Alignment is normal. No fracture. There is mild osteoarthritis of the hips. There is modera te lumbar spondylosis. IMPRESSION: 1. Mild osteoarthritis of the hips. Reviewed, dictated and finalized at location A. DECK TENDER
== END 2024-09-26 15:01 | disposition home or self-care (01) ==
PROVIDERS: PCP Family Medicine; Visit Provider Anesthesiology Pain Medicine
DX: M54.51 Vertebrogenic low back pain (principal); M48.061 Spinal stenosis, lumbar region without neurogenic claudication; M47.816 Spondylosis without myelopathy or radiculopathy, lumbar region; M47.818 Spondylosis without myelopathy or radiculopathy, sacral and sacrococcygeal region; M16.0 Bilateral primary osteoarthritis of hip
CPT/HCPCS: 72148; 72202; 73521

== ENCOUNTER 2024-10-15 12:35 | Outpatient (CLI) | payer MEDICARE, SELFPAY ==
--- NOTE | ~2024-10-15 | CT_ITS ---
EXAMINATION: CT lung screening DATE: 10/15/2024 12:49 INDICATION: Z87.891 - Personal history of nicotine dependence TECHNIQUE: Computed tomography (CT) of the chest was performed without intravenous contrast. Addition al 3D reconstructions utilizing coronal maximum intensity projection (MIP) were performed. Automated exposure control and iterative reconstruction technique were employed. The dose-length product was 97 .92 mGy-cm. COMPARISON: 10/05/2023 FINDINGS: Moderate paraseptal predominant emphysema. Paracardial fat extends cephalad along the caudal aspect o f the left major fissure. No change in a thin linear band of discoid atelectasis/scarring in the ante rior segment of the right upper lobe. <2 mm nodule along the right major fissure most likely para fis sural lymph node. Additional unchanged 1 mm relatively dense pleural-based nodule potentially calcifi ed at the periphery of the anterobasilar left lower lobe. No new or enlarging pulmonary nodules ident ified. No pleural effusion. Heart size normal. Atherosclerotic coronary artery calcification. No misbah cardial effusion. Thoracic aorta is normal in caliber with no dissection. No pathologically enlarged thoracic lymphadenopathy. Small sliding-type hernia. Mild thoracic spondylosis. IMPRESSION: 1. Lung-RADS category 2: Benign appearance or behavior. Continue annual screening with noncontrast lo w-dose chest CT in 12 months. Reviewed, dictated and finalized at location B. ING CARHOP IMPRESSION: 1. Lung-RADS category 2: Benign appearance or behavior. Continue annual screeni ng with noncontrast low-dose chest CT in 12 months.
== END 2024-10-15 12:36 | disposition home or self-care (01) ==
PROVIDERS: PCP Family Medicine; Visit Provider Internal Medicine Critical Care Medicine
DX: Z12.2 Encounter for screening for malignant neoplasm of respiratory organs (principal); Z87.891 Personal history of nicotine dependence
CPT/HCPCS: 71271

== ENCOUNTER 2024-12-02 00:29 | Day surgery (SDC) | payer MEDICARE, SELFPAY ==
[2024-11-18 15:58] VITALS: BMI 25.2
--- NOTE | 2024-11-18 16:16 | PC.NURSE ---
Report to the Outpatient Waiting Room, entrance under the green pavilion located off [facility], at time ____2:45PM___ on date ___12/02/24____. Planned Procedure Time: ___3:45PM .? Time changes happen often and if your time is changed the preop area will call you the afternoon before. - You and your visitor will be asked to self-screen and do not enter if you have any COVID symptoms. Please call surgeon if you need to reschedule. - A mask is optional within the hospital at this time. Patients may have LIGHT BREAKFAST/LUNCH PER DR ROGERS. - No food OR DRINK FOR 2 HOURS PRIOR TO surgery (1:45PM) and no smoking, or chewing tobacco (or any form of nicotine). No chewing gum, candy or mints. - Take only the following medications with a SIP of water on the morning of surgery: MORNING MEDS DO NOT STOP ANY OF YOUR OTHER PRESCRIPTION MEDICATIONS PRIOR TO SURGERY EXCEPT THE FOLLOWING Medications to discontinue per physician __HOLD XERALTO PER DR ROGERS Date to take last dose Please no make-up, nail hungarian, hairspray, perfume, deodorant, or body powder the day of surgery.? No jewelry (including any body piercings) or valuables the day of surgery, leave them at home.? Please take a shower or bath the night before, or the morning of, surgery with an antibacterial soap.? Wear comfortable, loose fitting clothing.? Children are encouraged to wear pajamas. - Jewelry must be removed prior to entering the operating room.? Rings and piercings that are not removed may be cut off. - The hospital will not accept responsibility for valuables.? - Please leave all valuables, including medications, at home the day of surgery. If you are going home after surgery, MAY DRIVE OR HAVE A CODE ENFORCEMENT OFFICER HOME. Follow any additional instructions given to you from your surgeon. Telephone instructions given to ___PATIENT and asked if any additional questions and then verbalized understanding. Patient advised to call surgeon office or pre surgery nurse liaison [phone] if any additional questions.
--- NOTE | ~2024-12-02 | XR_ITS ---
EXAMINATION: XR fluoroscopy no charge DATE: 12/02/2024 15:39 INDICATION: Sacroiliac joint steroid injection. TECHNIQUE: 3 intraoperative fluoroscopic views of the pelvis were obtained. I was not present. Fluoro scopy exposure time was 18 seconds. COMPARISON: None. FINDINGS: There is no side marker. There is a needle with contrast in the sacroiliac joint. IMPRESSION: 1. Sacroiliac joint injection. Reviewed, dictated and finalized at location A. T PRODUCTION ASSOCIATE
--- OUTSIDE RECORDS SUMMARY | 2024-12-02 00:32 | XMS_ITS | Patient Health Summary ---
Author Organization [facility] Address [address] [place] [address] Care Team Providers Care Research And Development Engineer Name Role Phone Unavailable Primary Care Provider Unavailabl e Note from [facility],non-owned Affiliates and Associated Physician Practices is amultiple site organization consisting of ambulatory clinics and hospital sitesin [place], [place], [place] and [place]. This disclosure is being madepursuant to the Care Everywhere program and may not contain all information available regarding this patient. Last updated 18.[facility] Allergies * Sulfa Drugs(Urticaria) -Medium Criticality Medications * Be aware that medications may not be up to date on this document. Alwaysverify current medications with the patient. * amLODIPine (NORVASC) 10 MG tablet(Started 01/10/2020) Take 10 mg by mouth once daily * clonazePAM (KLONOPIN) 1 MG tablet(Started 03/08/2016) 1 mg * doxazosin (CARDURA) 2 MG tablet(Started 01/10/2020) Take 2 mg by mouth once daily * fluticasone-salmeterol (ADVAIR DISKUS) 500-50 MCG/DOSE inhaler(Started 02/20/2018) * quinapril (ACCUPRIL) 40 MG tablet(Started 01/10/2020) Take 40 mg by mouth once daily * rivaroxaban (XARELTO) 20 MG tablet(Started 01/10/2020) Take 20 mg by mouth once daily * umeclidinium (INCRUSE ELLIPTA) 62.5 MCG/INH inhaler(Started 08/12/2018) Inhale 1 puff by mouth once daily Social History Tobacco Use Types Packs/Day Years Used Date Smoking Tobacco: Never Assessed Sex and Gender Information Value Date Recorded Sex Assigned at Not on file Gender Identity Not on file Sexual Orientation Not on file Last Filed Vital Signs Vital Sign Reading Time Taken Comments Blood Pressure 130/76 2020 3:47 PM CDT Pulse 64 2020 3:47 PM CDT Temperature 36.6 C (97.8 F) 2020 3:47 PM CDT Respiratory Rate 16 2020 3:47 PM CDT Oxygen Saturation 99% 2020 3:47 PM CDT Inhaled Oxygen Concentration - - Weight 81.6 kg (180 lb) 2020 3:47 PM CDT Height 180.3 cm (5' 11 ) 2020 3:47 PM CDT Body Mass Index 25.1 2020 3:47 PM CDT Procedures * DERMATOPATHOLOGY(Performed 06/29/2020) * CULTURE AEROBIC(Performed 2020) Performed for Localized infection of skin * DERMATOPATH TECHNICAL REPORT(Performed 08/31/2018) Results * DERMATOPATHOLOGY (06/29/2020 12:00 AM CDT) Case Report Dermatopathology Report Case: [id number] Authorizing Provider: Danielle Pinzon MD Collected: 06/29/2020 12:00 AM Ordering Location: [facility] DermPath Lab Received: 06/30/2020 12:48 PM Pathologist: Brittney Fox MD Specimen: Skin, left dorsal hand 0 12:52 PM CDT DERMATOPATHOLOGY LABORATORY Final Diagnosis Specimen A. 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 0 12:52 PM CDT DERMATOPATHOLOGY LABORATORY Gross Description Specimen A: Received is one formalin filled container labeled with the patient's name and designated left dorsal hand. The specimen consists of a shave measuring [id number]. Jar 0. 0 12:52 PM CDT DERMATOPATHOLOGY LABORATORY Microscopic Description Specimen A. SKIN, left dorsal hand: The epidermis is acanthotic and shows full thickness disorderly maturation of keratinocytes, mitoses at different levels, and dyskeratotic cells. There is overlying parakeratosis and hyperkeratosis. 0 12:52 PM CDT DERMATOPATHOLOGY LABORATORY Disclaimer An external and internal positive and negative controls are appropriate for the histochemical, immunohistochemical and immunofluorescence stain(s) in this case (if any), except where stated explicitly. The performance characteristics of the stain(s) cited in this report were developed and its performance characteristic determined by the [facility] at [facility], directed by Dr. Bar Fox. These tests need not be, and therefore are not, approved by the [place] Food and Drug Administration. The tests are used for clinical purposes. Billing Codes Specimen Charges Stain Charges 67068 1 0 12:52 PM CDT DERMATOPATHOLOGY LABORATORY Embedded Images 0 12:52 PM CDT DERMATOPATHOLOGY LABORATORY Pathology/Cytolog y TISSUE SPECIMEN FROM SKIN / Unknown 06/29/2020 06/30/2020 12:48 PM CDT Danielle Pinzon MD LAB - PATHOLOGY/CYT OLOGY ORDERABLES DERMATOPATHOLOGY LABORATORY [facility] Department of Dermatology [facility] Medicine [address] [place] [address], [address] [phone] * CULTURE AEROBIC (2020 4:00 PM CDT) Aerobic Bacterial Culture Final report [facility] ACCOUNT BILL Result 1 Mixed skin blanca [facility] ACCOUNT BILL Microbiology LESION OF NOSE / Unknown 2020 4:00 PM CDT 06/10/2020 Narrative Resulting Agency Comment Lab Testing performed at: [facility] [address] [id number] Nacho SALEH LAB - MICROBIOLOG Y ORDERABLES [facility] ACCOUNT BILL [address] [place] [address] * DERMATOPATH TECHNICAL REPORT (08/31/2018 12:00 AM [facility]) Case Report Dermatopathology Report Case: [id number] Authorizing Provider: Danielle Pinzon MD Collected: 08/31/2018 12:00 AM Pathologist: Onelia Mas MD Received: 09/03/2018 07:22 AM Specimen: Skin, left central cheek 10:26 AM [facility] DERMATOPATHOLOGY LABORATORY Clinical History BCC. Non-healing. Check margins. 10:26 AM [facility] DERMATOPATHOLOGY LABORATORY Gross Description Specimen A: Received is one formalin filled container labeled with the patient's name and designated left central cheek. The specimen consists of a shave measuring [id number]. The margin is inked green. Jar 0. [facility] performed the technical component only. 10:26 AM [facility] DERMATOPATHOLOGY LABORATORY Embedded Images 10:26 AM [facility] DERMATOPATHOLOGY LABORATORY DISCLAIMER An external and internal positive and negative controls are appropriate for the histochemical, immunohistochemical and immunofluorescence stain(s) in this case (if any), except where stated explicitly. The performance characteristics of the stain(s) cited in this report were developed and its performance characteristic determined by the [facility]ermatopathology Laboratory at [facility]. These tests need not be, and therefore are not, approved by the [place] Food and Drug Administration. The tests are used for clinical purposes. 10:26 AM [facility] DERMATOPATHOLOGY LABORATORY Pathology/Cytolog y TISSUE SPECIMEN FROM SKIN / Unknown 08/31/2018 09/03/2018 7:22 AM [facility] Danielle Pinzon MD LAB - PATHOLOGY/CYT OLOGY ORDERABLES DERMATOPATHOLOGY LABORATORY [facility] - Department of Dermatology [address] [place] [address], [facility] [phone]
--- OUTSIDE RECORDS SUMMARY | 2024-12-02 00:32 | XMS_ITS | Clinical Summary ---
Author Organization [facility] Address [address] [place] [place] [address] Care Team Providers Care Instrument Repair Technician Name Role Phone Rita Lyn MD Primary Care Provider [phone] Allergies Active Allergy Reactions Criticality Noted Date Comments Iodine Unknown Medium 12/25/2023 Sulfa (Sulfonamide Antibiotics) Hives High 12/01 Medications metoprolol succinate (TOPROL XL) 25 mg Extended Release 24 hour tablet Take 25 mg by mouth daily. 12/04/2023 Active pravastatin (PRAVACHOL) 40 mg tablet Take 40 mg by mouth daily. 12/04/2023 Active rivaroxaban (XARELTO) 20 mg Tablet Take 20 mg by mouth daily. 12/04/2023 Active tamsulosin (FLOMAX) 0.4 mg capsule 0.4 mg. Active fluticasone-umec lidinium-vilante rol (Trelegy Ellipta) 100-62.5-25 mcg Disk with Device INHALE 1 PUFF EVERY 24 HOURS RINSE AND SPIT AFTER USE. 11/12/2022 Active amLODIPine (NORVASC) 5 mg tablet Take 5 mg by mouth daily. 06/16/2024 Active doxycycline monohydrate (MONODOX) 50 mg Capsule Take 50 mg by mouth daily. 05/22/2024 Active montelukast (SINGULAIR) 10 mg tablet Take 10 mg by mouth daily. 12/25/2023 Active Active Problems No known active problems Encounters Date Type Department Care Team Description 10/08/2024 External Device Data [facility] ABSTRACTION Provider, Abstract from Last 3 Months Family History Medical History Relation Name Comments Heart Disease Brother 1 Heart Disease Brother 2 Skin Cancer Brother 2 Heart Disease Brother 3 Heart Disease Brother 4 Heart Disease Father Heart Disease Mother Heart Disease Sister 1 Heart Disease Sister 2 Heart Disease Sister 3 Relation Name Status Comments Brother 1 Brother 2 Alive Brother 3 Alive Brother 4 Alive Daughter Alive Father Mother Sister 1 Sister 2 Alive Sister 3 Alive Social History Tobacco Use Types Packs/Day Years Used Date Smoking Tobacco: Former Cigarettes Q uit: 1974 Smokeless Tobacco: Never Tobacco Cessation:Counseling Given: Not Answered Alcohol Use Standard Drinks/Week Comments Never 0 (1 standard drink = 0.6 oz pur e alcohol) Sex and Gender Information Value Date Recorded Sex Assigned at Male 07/05/2024 1:01 PM CDT Legal Sex Male 8:21 AM CDT Gender Identity Male 07/05/2024 1:01 PM CDT Sexual Orientation Straight 07/05/2024 1: 01 PM CDT Last Filed Vital Signs Vital Sign Reading Time Taken Comments Blood Pressure 128/73 07/09/2024 10:46 AM CDT Pulse 63 07/09/2024 10:46 AM CDT Temperature 36.7 C (98 F) 07/09/2024 10:46 AM CDT Respiratory Rate 16 07/09/2024 10:46 AM CDT Oxygen Saturation 98% 07/09/2024 10:46 AM CDT Inhaled Oxygen Concentration - - Weight 85.3 kg (188 lb) 07/09/2024 10:46 AM CDT Height 180.3 cm (5' 11 ) 12/25/2023 2:57 PM CDT Body Mass Index 26.22 12/25/2023 2:57 PM CDT Plan of Treatment Upcoming Encounters Date Type Department Care Team (Late st Contact Info) Description 07/14/2025 10:00 AM CDT Office Visit [facility] Oncology and Hematology - Ajit [address] [place] [address] Beau Field MD [address] [facility] [address] [place] [address] Health Maintenance Due Date Last Done Comments Pre-Diabetes and Diabetes Screening 1955 DTAP/TDAP/TD VACCINES (1 - Tdap) 1975 PNEUMOCOCCAL VACCINE 50+ YEARS (1 of 2 - PCV) 06/09/19 75 COLORECTAL SCREENING 2001 Colorectal Cancer Screening 2001 FIT-DNA Q 3 years 2001 FIT/FOBT Q 1 year 2001 Flex Sig/CT Colonography Q 5 years 2001 ZOSTER VACCINE (1 of 2) 2006 RSV VACCINE (60+ or ) (1 - Risk 60-74 years 1-dose series) 2016 INFLUENZA VACCINE (#1) 2024 Abdominal Aortic Aneurysm (AAA) Screening Completed 08/09/2021 Insurance [employer] CHOICE PPO MCR Care Teams Instrument Repair Technician Relationship Specialty Start Date End Date Rita Lyn MD [address] [place] [phone] PCP - General Family Practice 12/13/23
--- OUTSIDE RECORDS SUMMARY | 2024-12-02 00:32 | XMS_ITS | Referral Summary ---
Author Organization [facility] Address [address] [place] [address] Care Team Providers Care Forest Technician Name Role Phone Unavailable Primary Care Provider Unavailabl e Source Comments [facility],non-owned Affiliates and Associated Physician Practices is amultiple site organization consisting of ambulatory clinics and hospital sitesin [place], [place], [place] and [place]. This disclosure is being madepursuant to the Care Everywhere program and may not contain all information available regarding this patient. Last updated 18.[facility] [address] [employer] Allergies Active Allergy Reactions Criticality Noted Date Comments Sulfa Drugs Urticaria Medium 2020 Medications * Be aware that medications may not be up to date on this document. Alwaysverify current medications with the patient. Medication Sig Dispensed Refills Start Date End Date Status amLODIPine (NORVASC) 10 MG tablet Take 10 mg by mouth once daily 01/10/2020 Active clonazePAM (KLONOPIN) 1 MG tablet 1 mg 03/08/2016 Active doxazosin (CARDURA) 2 MG tablet Take 2 mg by mouth once daily 01/10/2020 Active fluticasone-salmeterol (ADVAIR DISKUS) 500-50 MCG/DOSE inhaler 02/20/2018 Active quinapril (ACCUPRIL) 40 MG tablet Take 40 mg by mouth once daily 01/10/2020 Active rivaroxaban (XARELTO) 20 MG tablet Take 20 mg by mouth once daily 01/10/2020 Active umeclidinium (INCRUSE ELLIPTA) 62.5 MCG/INH inhaler Inhale 1 puff by mouth once daily 08/12/2018 Active Social History Tobacco Use Types Packs/Day Years [...] Mass Index 25.1 2020 3:47 PM CDT Plan of Treatment Not on file
--- OUTSIDE RECORDS SUMMARY | 2024-12-02 00:32 | XMS_ITS | Encounter Summary ---
Author Organization [facility] Address [address] [place] [address] Care Team Providers Care Extrusion Engineer Name Role Phone Unavailable Primary Care Provider Unavailabl e Encounter Details Date Type Department Care Team (Late st Contact Info) Description 09/03/2018 Lab Requisition [facility] Care DermPath Lab [address] [facility] [place] [address] Danielle Pinzon MD [address] [facility] [address] [place] [address] Social History Tobacco Use Types Packs/Day Years Used Date Smoking Tobacco: Never Assessed Sex and Gender Information Value Date Recorded Sex Assigned at Not on file Gender Identity Not on file Sexual Orientation Not on file documented as of this encounter Plan of Treatment Not on file documented as of this encounter Procedures Procedure Name Priority Date/Time Associated Diagnosis Comments DERMATOPATH TECHNICAL REPORT Routine 08/31/2018 12:00 AM RIGGING HELPER documented in this encounter Results * DERMATOPATH TECHNICAL REPORT (08/31/2018 12:00 AM RIGGING HELPER) Case Report Dermatopathology Report Case: [id number] Authorizing Provider: Danielle Pinzon MD Collected: 08/31/2018 12:00 AM Pathologist: Onelia Mas MD Received: 09/03/2018 07:22 AM Specimen: Skin, left central cheek 10:26 AM RIGGING HELPER DERMATOPATHOLOGY LABORATORY Clinical History BCC. Non-healing. Check margins. 8 10:26 AM RIGGING HELPER DERMATOPATHOLOGY LABORATORY Gross Description Specimen A: Received is one formalin filled container labeled with the patient's name and designated left central cheek. The specimen consists of a shave measuring [id number]. The margin is inked green. Jar 0. [facility] Dermatopathology Laboratory performed the technical component only. 8 10:26 AM [facility] DERMATOPATHOLOGY LABORATORY Embedded Images 10:26 AM [facility] DERMATOPATHOLOGY LABORATORY DISCLAIMER An external and internal positive and negative controls are appropriate for the histochemical, immunohistochemical and immunofluorescence stain(s) in this case (if any), except where stated explicitly. The performance characteristics of the stain(s) cited in this report were developed and its performance characteristic determined by the Dermatopathology Laboratory at [facility]. These tests need not be, and therefore are not, approved by the [place] Food and Drug Administration. The tests are used for clinical purposes. 8 10:26 AM [facility] DERMATOPATHOLOGY LABORATORY Pathology/Cytolog y TISSUE SPECIMEN FROM SKIN / Unknown 08/31/2018 09/03/2018 7:22 AM [facility] Danielle Pinzon MD LAB - PATHOLOGY/CYT OLOGY ORDERABLES DERMATOPATHOLOGY LABORATORY [facility] - Department of Dermatology [facility] [facility], 5th Floor Lab [address] [phone] documented in this encounter Visit Diagnoses Not on filedocumented in this encounter
--- OUTSIDE RECORDS SUMMARY | 2024-12-02 00:32 | XMS_ITS | Clinical Summary ---
Author Organization [facility] Address [address] [place] [address] Care Team Providers Care It Systems Engineer Name Role Phone Unavailable Primary Care Provider Unavailabl e Source Comments [facility],non-owned Affiliates and Associated Physician Practices is amultiple site organization consisting of ambulatory clinics and hospital sitesin [place], [place], [place] and [place]. This disclosure is being madepursuant to the Care Everywhere program and may not contain all information available regarding this patient. Last updated 18.[facility] Allergies Active Allergy Reactions Criticality Noted Date [...] 2020 3:47 PM CDT Plan of Treatment Health Maintenance Due Date Last Done Comments COLOGUARD (AGES 45-75) - COL ON CA SCREENING 1956 COLON MONITORING 1956 COLONOSCOPY - COLON CA SCREENING 1956 CT COLONOGRAPHY - COLON CA SCREENING 1956 Colorectal Cancer Screening 1956 FIT - COLON CA SCREENING 1956 FLEX SIG - COLON CA SCREENING 1956 LIPID TESTING 1956 HEPATITIS C SCREENING 06/05/1974 DTAP/TDAP/TD VACCINES (1 - Tdap) 1975 PNEUMOCOCCAL VACCINE 50+ (1 of 1 - PCV) 2006 ZOSTER VACCINE (1 of 2) 2006 SCREENING FOR DIABETES 2020 COVID-19 VACCINE ( - 2023-2 5 season) 2024 INFLUENZA VACCINE (#1) 2024 DEPRESSION SCREENING 10/02/2024 Respiratory Syncytial Virus (RSV) Vaccine Pt: or over 60 yrs (1 - 1-dose 75+ series) 2031 HEPATITIS B VACCINE Aged Out No longe r eligible based on patient's age to complete this topic HIB VACCINE Aged Out No longer eligi ble based on patient's age to complete this topic HPV VACCINE Aged Out No longer eligi ble based on patient's age to complete this topic MENINGOCOCCAL (Group B) VACCINE Aged Out No longer eligible based on patient's age to complete this topic MENINGOCOCCAL VACCINE Aged Out No mayte jey eligible based on patient's age to complete this topic
--- OUTSIDE RECORDS SUMMARY | 2024-12-02 00:32 | XMS_ITS | Clinical Summary ---
Author Organization [facility] Address [address] [place] [address] Care Team Providers Care Manager Mobile Name Role Phone Rita Lyn MD Primary Care Provider [phone] Social History Tobacco Use Types Packs/Day Years Used Date Smoking Tobacco: Never Assessed Sex and Gender Information Value Date Recorded Sex Assigned at Not on file Legal Sex Male 5:20 PM CDT Gender Identity Not on file Sexual Orientation Not on file Plan of Treatment Health Maintenance Due Date Last Done Comments Colorectal Cancer Screening Colonoscopy (10 Years) 1956 Hepatitis C 1974 DTaP, Tdap and Td Vaccines ( 1 - Tdap) 1975 Zoster Vaccines (1 of 2) 2006 Annual Medicare Wellness Visit 2021 Pneumococcal Vaccine: 65+ Years (2 of 2 - PCV) 2021 11/08/2018 COVID-19 Vaccine ( - 2023-2 5 season) 2024 07/04/2021, 12/17/2020, 11/27/2020 Influenza Adult (#1) 2024 06/22/2021, 07/17/2020, 09/06/2019 RSV Immunization or 60+ Years (1 - 1-dose 75+ series) 2031 Meningococcal B Vaccine Aged Out No l onger eligible based on patient's age to complete this topic Meningococcal Vaccine Aged Out No mayte jey eligible based on patient's age to complete this topic RSV Immunizations Under 20 Months Aged Out No longer eligible b ased on patient's age to complete this topic Insurance [employer] Care Teams Manager Mobile Relationship Specialty Start Date End Date Rita Lyn MD [address] [place], [place] [phone] PCP - General FAMILY PRACTICE 08/03/21
--- OUTSIDE RECORDS SUMMARY | 2024-12-02 00:32 | XMS_ITS | Encounter Summary ---
Author Organization [facility] Address [address] [place] [address] Care Team Providers Care Architectural Intern Name Role Phone Unavailable Primary Care Provider Unavailabl e Encounter Details Date Type Department Care Team (Late st Contact Info) Description 06/30/2020 Lab Requisition [facility] DermPath Lab [address] [facility] [facility] [place] [address] Danielle Pinzon MD [address] [facility] [address] [place] [address] Social History Tobacco Use Types Packs/Day Years Used Date Smoking Tobacco: Never Assessed Sex and Gender Information Value Date Recorded Sex Assigned at Not on file Gender Identity Not on file Sexual Orientation Not on file documented as of this encounter Plan of Treatment Not on file documented as of this encounter Procedures Procedure Name Priority Date/Time Associated Diagnosis Comments DERMATOPATHOLOGY Routine 06/29/2020 12:0 0 AM CDT documented in this encounter Results * DERMATOPATHOLOGY (06/29/2020 12:00 AM CDT) Case Report Dermatopathology Report Case: [id number] Authorizing Provider: Danielle Pinzon MD Collected: 06/29/2020 12:00 AM Ordering Location: [facility] DermPath Lab Received: 06/30/2020 12:48 PM Pathologist: [...] The specimen consists of a shave measuring [id number]. Jar 0. 0 12:52 PM CDT DERMATOPATHOLOGY [...] characteristic determined by the Dermatopathology Laboratory at [facility], directed by Dr. Bar Fox. These tests need not be, and therefore are not, approved by the [place] Food and Drug Administration. The tests are used for clinical purposes. Billing Codes Specimen Charges Stain Charges 73249 1 0 12:52 PM CDT DERMATOPATHOLOGY LABORATORY Embedded Images 0 12:52 PM CDT DERMATOPATHOLOGY LABORATORY Pathology/Cytolog y TISSUE SPECIMEN FROM SKIN / Unknown 06/29/2020 06/30/2020 12:48 PM CDT Danielle Pinzon MD LAB - PATHOLOGY/CYT OLOGY ORDERABLES DERMATOPATHOLOGY LABORATORY [facility] - Department of Dermatology [address] [place] [address], [facility] [phone] documented in this encounter Visit Diagnoses Not on filedocumented in this encounter
--- NOTE | 2024-12-02 14:00 | PM.HPGS ---
History of Present Illness History of Present Illness Consent: Risks, benefits, and alternatives have been discussed and questions answered. Patient agrees to proceed with procedure. Chief complaint: sacroiliitis, chronic low back pain Narrative: Kishor Washington is a 69 year old male with chronic, recalcitrant and disabling right lumbosacral back pain secondary to degenerative spondylosis, sacroiliitis and SI joint arthropathy with failure to respond to aggressive conservative measures including PT, oral and topical analgesics, opioid and nonopioid analgesics, rest, time and activity/behavioral modification over the past 1-2 years who presents for intra-articular steroid injection of the right SI joint under fluoroscopic guidance and with contrast control. Review of Systems Review of Systems: Patient denies any new infectious, allergic, cardiopulmonary, neurologic or constitutional symptoms or changes in activity tolerance or exercise capacity including new or progressive SOB/CORTES, peripheral edema, productive cough, dysuria, nausea/vomiting, diarrhea, weight change, fevers/chills/night sweats, new or progressive neurologic deficit, cognitive or mood changes since last seen, except as documented in the HPI. All systems reviewed & are unremarkable except as noted in HPI and below PMFSH Past Medical History Medical History Chronic renal insufficiency, stage IV (severe) BPH (benign prostatic hyperplasia) Allergic rhinitis Obstructive sleep apnea Interstitial pulmonary fibrosis Emphysema lung Impacted cerumen of right ear Encounter for immunization Prediabetes Mixed hyperlipidemia Paroxysmal atrial fibrillation Tobacco abuse COPD (chronic obstructive pulmonary disease) Hyperthyroidism Coronary artery disease Atypical chest pain Anxiety Surgical History Surgical History History of hernia repair History of knee surgery left right x2 History of gastrointestinal surgery H/O colonoscopy Family History Family History Mother Lung cancer Father , [place] age 50 Acute myocardial infarction, Onset Age: 50 Sibling Alcoholism Cancer Hypertension Heart disease Sibling Asthma Hypertension Father Diabetes mellitus Hypertension Heart disease Mother Heart disease Social History Social History Smoking packs per day: 0.5 Smoking cigarettes per day: 10.0 Years smoked: 50 Smoking pack-years: 25.00 Smoking status: Former smoker Tobacco type: cigarettes Second hand tobacco smoke exposure: Yes (spouse) Smoking end date: 11/02/22 Alcohol intake: never Alcohol use details: rarely Substance use: never Substance use type: does not use Lack of Transportation: No Lack of Food: Never True Current Housing: I Have Housing Concerned About Future Housing: No Difficulty Paying Gas/Electric Bills: No Difficulty Paying for Meds: No Currently Unemployed: No Education: Bachelor's Degree Difficulty w/ Childcare or Family Care: No Living arrangements: with family Additional living arrangements comments: Occupation/Education: retired Gender identity (if verbalized by the patient): Male Sexual Orientation (if Verbalized by the Patient): Straight or Heterosexual Spiritual care concerns: No Meds Home Medications and Allergies Home Medications ?Medication ?Instructions ?Recorded ?Confirmed ?Type metoprolol succinate 25 mg 25 mg PO DAILY 03/20/21 11/18/24 History tablet,extended release 24 hr rivaroxaban 20 mg tablet (Xarelto) 20 mg PO DAILY 03/23/21 11/18/24 History pravastatin 40 mg tablet 40 mg PO DAILY 10/31/22 11/18/24 History amlodipine 5 mg tablet 5 mg PO DAILY 01/08/24 11/18/24 History albuterol sulfate 90 mcg/actuation 1 inh inhalation Q4H PRN shortness 10/01/24 11/18/24 Rx aerosol inhaler of breath or wheezing #8.5 grams clonazepam 1 mg tablet 0.5 mg (1/2 x 1 mg) PO BID PRN 10/01/24 11/18/24 Rx anxiety #30 tabs montelukast 10 mg tablet 10 mg PO QHS #90 tabs 10/01/24 11/18/24 Rx tamsulosin 0.4 mg capsule (Flomax) 0.4 mg PO DAILY #90 caps 10/01/24 11/18/24 Rx fluticasone fur. 100 mcg-umeclid 1 inh inhalation Q24H PRN 11/18/24 11/18/24 History 62.5 mcg-vilant 25 mcg shortness of breath or wheezing inhalat.powder (Trelegy Ellipta) Allergies Allergy/AdvReac Type Severity Reaction Status Date / Time iodine Allergy Intermediate Hypotension Verified 11/18/24 15:52 sulfamethoxazole Allergy Intermediate RASH ON Verified 11/18/24 15:52 PALMS trimethoprim Allergy Intermediate RASH ON Verified 11/18/24 15:52 PALMS Iodinated Contrast Media Allergy Unknown Hypotension Verified 11/18/24 15:52 Exam Narrative: The patient's physical exam is essentially unchanged from prior examination on 10/21/2024. Specifically, patient demonstrates normal lung capacity, tidal volume and respiratory rate without wheezes, crackles, rales or rubs. Heart rate and rhythm are regular without murmurs, gallops or rubs. No JVD. Pulses 2+ globally without increasing peripheral edema. AAOx3 with no evidence of confusion, intoxication or altered mental state, NC/AT without acute distress or altered consciousness. Speech, cognition, mood, insight and judgment at baseline and within normal limits. Assessment and Plan Assessment and plan (1) Sacroiliitis: Code(s): M46.1 - Sacroiliitis, not elsewhere classified Status: Acute Assessment and Plan: Procede as planned with intra-articular steroid injection of the right SI joint under fluoroscopic guidance with contrast control. (2) Lumbosacral spondylosis: Code(s): M47.817 - Spondylosis without myelopathy or radiculopathy, lumbosacral region Status: Acute (3) Chronic low back pain: Code(s): M54.50 - Low back pain, unspecified; G89.29 - Other chronic pain Status: Acute
--- NOTE | 2024-12-02 14:04 | WPDHPUPDATE1 ---
History and Physical Update Update Date/Time: 12/02/24 14:04 History and Physical has been reviewed, including an updated exam of the patient. There are NO changes in the patient's condition. Risks, benefits, and alternatives have been discussed and questions answered. Patient agrees to proceed with procedure.
--- NOTE | 2024-12-02 14:05 | P.OP_ITS ---
Procedure Note - Detailed Date of Procedure 12/02/24 Pre-op Diagnosis sacroiliitis, chronic low back pain Post-op Diagnosis Same Procedure Performed Right Sacroiliac Joint Steroid Injection under Fluoroscopic Guidance and with Contrast Control. Surgeon Mc Zamora MD Education Spec None Anesthesia Local Description of Procedure INFORMED CONSENT: Risks, benefits and alternatives to the procedure were discussed in detail with the patient who expressed explicit understanding and consent to proceed. Patient was informed verbally and in written form regarding the risks associated with the procedure including the low risk of serious infection, bleeding/bruising, allergic reaction, nerve or organ injury, paralysis, procedural site pain or discomfort, worsening pain and/or mobility, failure to treat and/or disfigurement. The patient expressed explicit understanding and consent to proceed. All materials required for the procedure were available prior to procedure start. Site and side were marked prior to procedure and confirmed in the presence of the patient. PROCEDURE IN DETAIL: The patient was brought to the procedural suite and placed in the prone position. Patient was made comfortable with use of pillows under the head/chest, hips and ankles. Skin overlying the injection site on the affected side(s) was prepared broadly with ChloraPrep applicator and draped in a sterile manner. Aseptic technique was used throughout. The right SI joint was identified in the AP view and contralateral oblique angulation with caudal tilt was utilized to optimize visualization of the inferior and medial joint line representing the posterior portion of the joint. Local anesthesia was established by infiltration with approximately 5 mL of 2% lidocaine via a 1-1/2 inch 27-gauge needle. A 22-gauge 3.5 inch Quincke spinal needle was advanced until the needle entered the inferior third of the joint space approximately 1cm cephalad from its most inferior point. In the AP view, 0.5 mL of Multihance gadolinium-based contrast medium was injected after negative aspiration for CSF, blood or other bodily fluid, showing appropriate intra-articular spread of contrast without evidence of intravascular, perineural or intrathecal placement. A 1.5 mL solution containing 6 mg of betamethasone in 0.5% PF bupivacaine was injected after repeat negative aspiration. Appropriate spread of the injectate was confirmed with washout of previous injected contrast. No parasthesias were elicited. Needle was removed completely intact without difficulty. Images were saved and documented in the patient chart. Patient's skin was cleansed and sterile bandage applied. The patient tolerated the procedure well. The patient was transported to the recovery area in stable condition where they were observed for an appropriate amount of time prior to discharge, without evidence of complication. The patient was instructed to avoid excessive activity for the next 48 hours, including climbing and frequent use of stairs. Showers only for 48 hours. They were instructed not to drive or operate heavy machinery for 24 hours. They are to monitor for severe headaches, fevers, chills, night sweats, erythema/swelling at the site or any other signs of infection, bleeding/bruising, bowel or bladder changes as well as new pain, weakness or numbness in the upper or lower extremity. Should they notice these changes, they are instructed to call our office immediately or report directly to the nearest Emergency Department if no answer or if after posted office hours. COMPLICATIONS: None COMMENTS: None CONTRAST WASTED: 14.5mL MultiHance. Complications No immediate complications Condition Stable Disposition Same day [facility] Billing Surgery - Charge Forward: Surgery Billing
[2024-12-02 14:52] VITALS: BP 160/64; PULSE 59; RESP 16; TEMP 36.5; O2SAT 98; BMI 26.2
[2024-12-02 15:13] VITALS: BP 175/79; PULSE 60; RESP 16; O2SAT 98
[2024-12-02 15:18] VITALS: BP 131/61; PULSE 57; RESP 18; O2SAT 98
[2024-12-02] MEDS: BETAMETHASONE SODIUM PHOSPHATE PF INJ 6 MG/ML VIAL INFILTRATE (15:20)
[2024-12-02] MEDS: BUPivacaine HCL 0.5% 10 ML AMP 2 ML INFILTRATE (15:22)
[2024-12-02 15:23] VITALS: BP 164/74; PULSE 55; RESP 16; O2SAT 99
--- NOTE | 2024-12-02 15:30 | SUR.OPER ---
Patient had Iodine contrast allergy. MULTIHANCE was used in it's stead for fluroscopic guidance PER . Marek Hatch RN
== END 2024-12-02 15:35 | disposition home or self-care (01) ==
PROVIDERS: PCP Family Medicine; Visit Provider Anesthesiology Pain Medicine
PROC: (CPT G0260; principal; 2024-12-02 15:45)
DX: M46.1 Sacroiliitis, not elsewhere classified (principal); G89.29 Other chronic pain; Z87.891 Personal history of nicotine dependence
CPT/HCPCS: G0260; 99199

== ENCOUNTER 2025-01-07 00:09 | Day surgery (SDC) | payer MEDICARE, SELFPAY ==
[2024-12-24 08:11] VITALS: BMI 25.6
--- NOTE | 2024-12-24 08:27 | PC.NURSE ---
Addendum entered by Dagmar Lyons RN 12/24/24 08:34: Pt is aware ok to eat light breakfast and lunch prior to noon, pt is ok to take his medications that am But will Check on his Xarleto w Dr Juan caldwell. Pt aware after NOON, nothing else to eat or drink except clear liquids till procedure done. STEFFANY Original Note: Report to the Outpatient Waiting Room, entrance under the green pavilion [facility], at time _1:15pm on date _01/07/25 . Planned Procedure Time: __2:15pm .? Time changes happen often and if your time is changed the preop area will call you the afternoon before. - You and your visitor will be asked to self-screen and do not enter if you have any COVID symptoms. Please call surgeon if you need to reschedule. - A mask is optional within the hospital at this time. Patients may have clear liquids (water, carbonated beverages, clear teas, apple juice) until 3 hours prior to surgery with a maximum of 20 ounces. - No food from midnight until time of surgery and no smoking, or chewing tobacco (or any form of nicotine). No chewing gum, candy or mints. - Infants may have breast milk until 4 hours before surgery, formula 6 hours prior to surgery. - Children will be allowed to drink immediately following surgery.? If applicable, please bring a bottle or sippy cup to assist with drinking. Juice, water, soda, and popsicles are readily available.? For infants on formula, please bring formula the day of surgery.? Pacifiers are allowed. Take only the following medications with a SIP of water on the morning of surgery: Take all of am meds as scheduled DO NOT STOP ANY OF YOUR OTHER PRESCRIPTION MEDICATIONS PRIOR TO SURGERY EXCEPT THE FOLLOWING Medications to discontinue per physician Pt to check with Dr Zamora office regarding Xarelto, he was encouraged to call today, Date to take last dose per Dr Zamora. Please no make-up, nail luxembourgish, hairspray, perfume, deodorant, or body powder the day of surgery.? No jewelry (including any body piercings) or valuables the day of surgery, leave them at home.? Please take a shower or bath the night before, or the morning of, surgery with an antibacterial soap.? Wear comfortable, loose fitting clothing.? PT IS AWARE HE CANNOT DRIVE FOR 24 HOURS and will make ride arrangements. - Jewelry must be removed prior to entering the operating room.? Rings and piercings that are not removed may be cut off. - The hospital will not accept responsibility for valuables.? - Please leave all valuables, including medications, at home the day of surgery. If you are going home after surgery, a licensed line haul truck driver must drive you home.? - NO public transportation without another adult if you receive anesthesia. - We recommend that an adult stay with you for 24 hours following discharge. - We also recommend that you do not drive, make important decision, drink alcoholic beverages, or take any drugs that were not prescribed by your health care provider for at least 24 hours after your discharge time. Follow any additional instructions given to you from your surgeon. Telephone instructions given to __Patient and asked if any additional questions and then verbalized understanding. Patient advised to call surgeon office or pre surgery nurse liaison [phone] if any additional questions.
--- NOTE | ~2025-01-07 | XR_ITS ---
XR fluoroscopy no charge Indication: Lumbar nerve block TECHNIQUE: Fluoroscopy used during lumbar nerve block performed by [Mc Zamora MD] on 05/2025. 32 seconds of fluoroscopy with 3 fluoroscopic images captured. FINDINGS: Correlate with procedure note. IMPRESSION: Fluoroscopy used during lumbar nerve block. Reviewed, dictated and finalized at location A.
--- OUTSIDE RECORDS SUMMARY | 2025-01-07 00:11 | XMS_ITS | Clinical Summary ---
Author Organization [facility] Address [address] [place] [address] Care Team Providers Care Tuber Helper Name Role Phone Rita Lyn MD Primary Care Provider [phone] Social History Tobacco Use Types Packs/Day Years [...] 2 - PCV) 2021 11/08/2018 COVID-19 Vaccine (2023-2 5 season) 2024 07/04/2021, 12/17/2020, 11/27/2020 RSV Immunization or 60+ Years (1 - [...] complete this topic Insurance HU[employer] Care Teams Tuber Helper Relationship Specialty Start Date End Date Rita Lyn MD [address] [place] [address] PCP - General FAMILY PRACTICE 08/03/21
--- OUTSIDE RECORDS SUMMARY | 2025-01-07 00:11 | XMS_ITS | Referral Summary ---
Author Organization [facility] [address] [facility] [address] Address [address] [place] [address] Care Team Providers Care Fur Finisher Tailor Name Role Phone Rita Lyn MD Primary Care Provider [phone] Encounters Date Type Department Care Team Description 12/13/2024 11:00 AM CDT Office Visit [facility] Cardiology [address] [facility] [address] [place] [address] Bonnie Robbins NP Paroxysmal atrial fibrillation (HCC); Chronic anticoagulation; Labile hypertension; Lipid screening; Hyperlipidemia, unspecified hyperlipidemia type from Last 3 Months Allergies Active Allergy Reactions Criticality Noted Date Comments Iodine Unknown Medium Iodine And Iodide Containing Products Hypotension High Sulfa (Sulfonamide Antibiotics) Hives Medium Medications clonazePAM (KlonoPIN) 1 mg tablet take 1 tablet by oral route every day as needed 0 0 03/08/20 16 Active Additional Information Patient taking differently: 0.5 mg, Reported on 12/13/2024 Kevin Ellipmarimar 100-62.5-25 mcg inhaler Every other day 11/12/19 23 Active tamsulosin (FLOMAX) 0.4 mg extended release capsule 1 capsule (0.4 mg total) Active montelukast (SINGULAIR) 10 mg tablet 12/25/19 24 Active cholecalciferol (VITAMIN D-3) 2000 unit capsule Take 1 capsule (2,000 Units total) by mouth once for 1 dose 06/10/20 24 Active pravastatin (PRAVACHOL) 40 mg tablet Take 1 tablet (40 mg total) by mouth daily 90 tablet 3 06/14/20 24 025 Active multivitamin with minerals tablet Take 1 tablet by mouth daily Active albuterol HFA (PROVENTIL HFA,VENTOLIN HFA,PROAIR HFA) 90 mcg/actuation inhaler INHALE 1 PUFF BY MOUTH EVERY 4 HOURS NEEDED FOR SHORTNESS OF BREATH OR WHEEZING 10/01/20 24 Active doxycycline hyclate 100 mg capsule Take 1 tablet/capsule (100 mg total) by mouth daily 11/26/19 25 Active metoprolol XL (TOPROL-XL) 25 mg extended release tabletIndication s:Paroxysmal atrial fibrillation (HCC) Take 1 tablet (25 mg total) by mouth daily 90 tablet 3 12/14/19 25 026 Active rivaroxaban (XARELTO) 20 mg tabletIndication s:atrial fibrillation Take 1 tablet (20 mg total) by mouth daily 90 tablet 3 12/14/19 25 Active amLODIPine (NORVASC) 5 mg tabletIndication s:Labile hypertension Take 1 tablet (5 mg total) by mouth daily 90 tablet 3 12/14/19 25 026 Active metoprolol XL (TOPROL-XL) 25 mg extended release tablet Take 1 tablet (25 mg total) by mouth daily 90 tablet 3 12/04/19 24 025 Discontin ued(Reord er) rivaroxaban (XARELTO) 20 mg tabletIndication s:atrial fibrillation Take 1 tablet (20 mg total) by mouth daily 90 tablet 3 12/04/19 24 025 Discontin ued(Reord er) lisinopriL (PRINIVIL,ZESTRI L) 40 mg tablet Take 1 tablet (40 mg total) by mouth daily 90 tablet 2 12/27/19 24 025 Discontin ued(Other ) amLODIPine (NORVASC) 5 mg tablet Take 1 tablet (5 mg total) by mouth daily 90 tablet 3 01/19/20 24 025 Discontin ued(Reord er) Active Problems Problem Noted Date Diagnosed Date Hyperlipidemia 06/14/2024 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 Recent TSH 08/2018 - WNL off methimazole - recheck TFT in 3 months and every 3 months - follow in one year Assessment & Plan (04/23/2018 8:21 PM CDT): Reviewed and discussed pt. Recent TFT Free T 4 and Free T 3 normal range , TSH slightly high Recently decreased Methimazole to 5 mg oral daily - recheck TFT in 2 months and every 2 months - follow in 4 months Important Information About your antithyroid Medication Instruction to patients taking Tapazole (methimazole) for the treatment of hyperthyroidism Name: Kishor Washington Date of : 1955 Medication : Methimazole Dose :5 mg Frequency: once daily Take your medication every day as directed by your physician unless you notice the problems listed below: If you notice a skin rash, then call your doctor as soon as possible. If you notice a sore throat, sores in the mouth, or develop a fever: Call your doctor as soon as possible You need to go to your doctor s office or hospital to have a blood test (Complete Blood Count and Differential Count) If the blood test is normal, then your doctor will instruct you to continue taking the anti-thyroid medication. DO NOT stop the anti-thyroid medication unless your doctor tells you to do so. As long as you are taking this anti-thyroid medication, you must see your physician regularly to keep the medication properly adjusted based on your thyroid blood tests. Then please contact your doctor immediately Assessment & Plan (12/06/2017 3:31 PM PARAPROFESSIONAL AIDE): Reviewed and discussed pt. Recent TFT Free T 4 and Free T 3 normalized , TSH still suppressed Advise to c/w Methimazole 20 mg oral daily - recheck TFT in 2 months and every 2 months - follow in 4 months Important Information About your antithyroid Medication Instruction to patients taking Tapazole (methimazole) for the treatment of hyperthyroidism Name: Kishor Washington Date of : 1955 Medication : Methimazole Dose : 20 mg Frequency: once daily Take your medication every day as directed by your physician unless you notice the problems listed below: If you notice a skin rash, then call your doctor as soon as possible. If you notice a sore throat, sores in the mouth, or develop a fever: Call your doctor as soon as possible You need to go to your doctor s office or hospital to have a blood test (Complete Blood Count and Differential Count) If the blood test is normal, then your doctor will instruct you to continue taking the anti-thyroid medication. DO NOT stop the anti-thyroid medication unless your doctor tells you to do so. As long as you are taking this anti-thyroid medication, you must see your physician regularly to keep the medication properly adjusted based on your thyroid blood tests. Then please contact your doctor immediately Assessment & Plan (10/22/2017 9:01 PM PARAPROFESSIONAL AIDE): Reviewed and discussed with pt. His previous TFT 09/28/2017, NM thyroid uptake and scan results DD: Thyroiditis vs early Grave's disease - started pt. On Anti thyroid meds - Methimazole 20 mg oral daily ( discussed risks and benefits And possible side effects ) - pt. Agreed to try anti thyroid meds - c/w Atenolol 25 mg oral daily - recheck TFT in 2 months - follow up in 2 months Important Information About your antithyroid Medication Instruction to patients taking Tapazole (methimazole) for the treatment of hyperthyroidism Name: Kishor Washington Date of : 1955 Medication : Methimazole Dose : 20 mg Frequency: once daily Take your medication every day as directed by your physician unless you notice the problems listed below: If you notice a skin rash, then call your doctor as soon as possible. If you notice a sore throat, sores in the mouth, or develop a fever: Call your doctor as soon as possible You need to go to your doctor s office or hospital to have a blood test (Complete Blood Count and Differential Count) If the blood test is normal, then your doctor will instruct you to continue taking the anti-thyroid medication. DO NOT stop the anti-thyroid medication unless your doctor tells you to do so. As long as you are taking this anti-thyroid medication, you must see your physician regularly to keep the medication properly adjusted based on your thyroid blood tests. Then please contact your doctor immediately Assessment & Plan (09/28/2017 1:07 PM PARAPROFESSIONAL AIDE): Reviewed and discussed pt. Recent labs with pt. - 09/01/2017 TSH < 0.006 ( L) , free T4 - 2.51 ( H) - DD ; Hyperthyroidism sec. To thyroiditis vs Grave's disease vs toxic goiter - performed a thyroid u/s in office today - slightly diffusely enlarged with no significant increase in vasculature, expect in right inferior lobe , no discrete nodules noted. 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 06/13/2016 Overview (01/05/2017): Coronary artery disease involving [place] coronary artery of lone pine heart without angina pectoris Tobacco dependence in remission 06/13/2016 Overview (01/05/2017): Tobacco abuse, in remission Dehiscence of operative wound 02/19/2010 Resolved Problems Problem Noted Date Diagnosed Date Resolved Date PVC's (premature ventricular contractions) 09/11/2018 06/14/2019 Essential hypertension 07/19/201712/03 Social History Tobacco Use Types Packs/Day Years Used Date Smoking Tobacco: Former Cigarettes 0.3 40 0 11/29/1982 - 11/29/2022 Smokeless Tobacco: Never Tobacco Cessation:Counseling Given: Not Answered Comments:Smoking History Packs/day: 5-10 Cigarettes Alcohol Use Standard Drinks/Week Comments No 0 (1 standard drink = 0.6 oz pur e alcohol) AUDIT-C Answer Date Recorded Q1: How often do you have a drink containing alc ohol? Monthly or less 02/15/2024 Average Number of Drinks Not on file 024 Frequency of Binge Drinking Not on file 01/30 PHQ-2 Answer Date Recorded PHQ-2 Score 0 05/24/2019 Sex and Gender Information Value Date Recorded Sex Assigned at Not on file Legal Sex Male 1:03 PM PARAPROFESSIONAL AIDE Gender Identity Male 06/29/2021 6:30 AM CDT Sexual Orientation Straight 06/29/2021 6: 30 AM CDT Last Filed Vital Signs Vital Sign Reading Time Taken Comments Blood Pressure 142/68 12/13/2024 11:26 AM CDT Pulse 70 12/13/2024 11:26 AM CDT Temperature 36.6 C (97.8 F) 07/31/2024 3:04 PM CDT Respiratory Rate 18 07/13/2020 3:38 PM CDT Oxygen Saturation 98% 12/13/2024 11:26 AM CDT Inhaled Oxygen Concentration - - Weight 85.3 kg (188 lb) 12/13/2024 11:26 AM CDT Height 180.3 cm (5' 11 ) 12/13/2024 11:26 AM CDT Body Mass Index 26.22 12/13/2024 11:26 AM CDT Plan of Treatment Not on file Procedures Procedure Name Priority Date/Time Associated Diagnosis Comments POCT LIPID PANEL Routine 12/13/2024 11:3 9 AM CDT Lipid screening COLONOSCOPY REPORT 02/06/2015 from Last 3 Months or Most Recently Relevant to Health Maintenance Results * POCT lipid panel (12/13/2024 11:39 AM CDT) Cholesterol, POC 123 mg/dL HDL, POC 59 mg/dL Triglycerides, POC 45 mg/dL LDL Cholesterol POC 51 mg/dL Chol/HDL Ratio, POC - Non-HDL Cholesterol, POC 64 mg/dL Cholesterol Total, POC 123 mg/dL Capillary blood 12/13/2024 1 1:39 AM CDT Bonnie Robbins NP POINT OF CARE TEST ORDERA BLES Final Result * COLONOSCOPY REPORT (02/06/2015) Anatomical Region Laterality Modality Other Narrative 02/06/2015 Ordered by an unspecified provider. Historical Provider GI PROCEDURE ORDERABLES F inal Result from Last 3 Months or Most Recently Relevant to Health Maintenance Insurance [employer] [facility] HUMANA InvitedHome MEDICARE PPO HUMANA CHOICE MEDICARE PPO HU[employer] CHOICE MEDICARE PPO Care Teams Fur Finisher Tailor Relationship Specialty Start Date End Date Rita Lyn MD PCP - General 12/30/16
--- OUTSIDE RECORDS SUMMARY | 2025-01-07 00:11 | XMS_ITS | Encounter Summary ---
Author Organization [facility] Address [address] [place] [address] Care Team Providers Care Transportation Program Director Name Role Phone Unavailable Primary Care Provider Unavailabl e Encounter Details Date Type Department Care Team (Late st Contact Info) Description 06/30/2020 Lab Requisition [facility] [address] [facility] [facility] [place] [address] Danielle Pinzon MD [address] [facility] [address] [place] [address] Social History Tobacco Use Types Packs/Day Years [...] AM CDT) Case Report Dermatopathology Report Case: [id number] Authorizing Provider: Danielle Pinzon MD Collected: 06/29/2020 12:00 AM Ordering Location: [facility] Received: 06/30/2020 12:48 PM Pathologist: [...] The specimen consists of a shave measuring [id number]. Jar 0. 0 12:52 PM CDT DERMATOPATHOLOGY [...] characteristic determined by the Dermatopathology Laboratory at [facility], directed by Dr. Bar Fox. These tests need not be, and therefore are not, approved by the [place] Food and Drug Administration. The tests are used for clinical purposes. Billing Codes Specimen Charges Stain Charges 97148 1 0 12:52 PM CDT DERMATOPATHOLOGY LABORATORY Embedded Images 0 12:52 PM CDT DERMATOPATHOLOGY LABORATORY Pathology/Cytolog y TISSUE SPECIMEN FROM SKIN / Unknown 06/29/2020 06/30/2020 12:48 PM CDT Danielle Pinzon MD LAB - PATHOLOGY/CYT OLOGY ORDERABLES DERMATOPATHOLOGY LABORATORY [facility] - Department of Dermatology [address] [place] [address], [facility] [phone] documented in this encounter Visit Diagnoses Not on filedocumented in this encounter
--- OUTSIDE RECORDS SUMMARY | 2025-01-07 00:11 | XMS_ITS | Clinical Summary ---
Author Organization [facility] Address [address] [place] [address] Care Team Providers Care After School Program Assistant Name Role Phone Rita Lyn MD Primary Care Provider [phone] Allergies Active Allergy Reactions Criticality Noted Date Comments Iodine Unknown Medium 12/25/2023 Sulfa (Sulfonamide Antibiotics) Hives High 12/01 Medications rivaroxaban (XARELTO) 20 mg Tablet Take 20 [...] Active Active Problems No known active problems Family History Medical History Relation Name Comments [...] 07/14/2025 10:00 AM CDT Office Visit [facility] Oncology and Hematology [facility] [address] [facility] [address] [place] [address] Beau Field MD [address] [facility] [address] [place] [address] Health Maintenance Due Date Last [...] Insurance [employer] CHOICE PPO MCR Care Teams After School Program Assistant Relationship Specialty Start Date End Date Rita Lyn MD [address] [place] [id number] PCP - General Family Practice 12/13/23
--- OUTSIDE RECORDS SUMMARY | 2025-01-07 00:11 | XMS_ITS | Clinical Summary ---
Author Organization [facility] [place] [address] Address [address] [place] [address] Care Team Providers Care Field Artillery Operations Specialist Name Role Phone Rita Lyn MD Primary Care Provider [phone] Allergies Active Allergy Reactions Criticality Noted Date Comments Iodine Unknown Medium Iodine And Iodide Containing Products Hypotension High Sulfa (Sulfonamide Antibiotics) Hives Medium Medications clonazePAM (KlonoPIN) 1 mg tablet take 1 tablet by oral route every day as needed 0 0 03/08/20 16 Active Additional Information Patient taking differently: 0.5 mg, Reported on 12/13/2024 Trelegy Ellipta 100-62.5-25 mcg inhaler Every other day 11/12/19 [...] (09/05/2019): Added automatically from request for surgery [id number] Paroxysmal atrial fibrillation 09/11/2018 Chronic anticoagulation 09/11/2018 Nonrheumatic aortic valve insufficiency 01/25/20 18 Hyperthyroidism 09/28/2017 Assessment & Plan (08/16/2018 4:25 PM COAGULATING BATH OPERATOR): Reviewed and discussed pt. Recent TSH 08/2018 [...] immediately Assessment & Plan (12/06/2017 3:31 PM COAGULATING BATH OPERATOR): Reviewed and discussed pt. Recent TFT Free [...] immediately Assessment & Plan (10/22/2017 9:01 PM COAGULATING BATH OPERATOR): Reviewed and discussed with pt. His previous [...] immediately Assessment & Plan (09/28/2017 1:07 PM COAGULATING BATH OPERATOR): Reviewed and discussed pt. Recent labs with [...] fatigue 07/19/2017 Coronary artery disease invo lving kalispel coronary artery of kalispel heart without angina pectoris 06/13/2016 Overview (01/05/2017): Coronary artery disease involving k[place]el coronary artery of k[place]isp[place] heart without angina pectoris Tobacco dependence in remission 06/13/2016 Overview (01/05/2017): Tobacco abuse, in remission Dehiscence of operative wound 02/19/2010 Resolved Problems Problem Noted Date Diagnosed Date Resolved Date PVC's (premature ventricular contractions) 09/11/2018 06/14/2019 Essential hypertension 07/19/201712/03 Encounters Date Type Department Care Team Description 12/13/2024 11:00 AM CDT Office Visit [facility] [address] [place] [address] Bonnie Robbins NP Paroxysmal atrial fibrillation (HCC); Chronic anticoagulation; Labile hypertension; Lipid screening; Hyperlipidemia, unspecified hyperlipidemia type from Last 3 Months Surgical History Surgery Date Site/Laterality Comments HERNIA REPAIR KNEE SURGERY Left COLON SURGERY APPENDECTOMY VASECTOMY Medical History Medical History Date Comments Coronary artery disease Hypertension COPD (chronic obstructive pulmonary disease) (HC C) Hyperthyroidism Arthritis GERD (gastroesophageal reflux disease) Heart disease Family History Medical History Relation Name Comments Hypertension Brother Vern [place] Diabetes Father Niraj [place] Heart attack Father Niraj [place] Hypertension Father Niraj [place] Hypertension Mother Ira [place] Diabetes Sister Lena [place] Hypertension Sister Lena [place] Relation Name Status Comments Brother Vern [place] Father Niraj [place] Mother Ira [place] Sister Lena [place] Social History Tobacco Use Types Packs/Day Years [...] on file Legal Sex Male 1:03 PM COAGULATING BATH OPERATOR Gender Identity Male 06/29/2021 6:30 AM CDT Sexual Orientation Straight 06/29/2021 6: 30 AM CDT Obstetrics History Last Filed Vital Signs Vital Sign Reading [...] 12/13/2024 11:26 AM CDT Plan of Treatment Health Maintenance Due Date Last Done Comments Fall Risk Assessment 1955 Hepatitis C Screening 1955 Prostate Cancer Screening-PSA 1956 DTaP/Tdap/Td Vaccine (1 - Tdap) 1967 Hepatitis B Screening 1974 Lung Cancer Screening 2006 Zoster Vaccine (1 of 2) 2006 Depression Screening 08/13/2019 08/13/2018, 12/06/2017, 10/20/2017, Additional history exists Pneumococcal vaccine 65+ (2 of 2 - PCV) 11/08/2019 11/08/2018 Well Visit 65+ 2021 Covid-19 Vaccine (3 - 2023-2 5 season) 2024 12/17/2020, 11/27/2020 Influenza Vaccine (#1) 2024 07/17/2020, 2018 Colon Cancer Screening-Colonoscopy 02/06/2025 02/06/2015 Colon Cancer Screening-CT Colonography Discontinued 02/06/2015 Colon Cancer Screening-DNA Stool Discontinued 02/07/20 15 Colon Cancer Screening-FIT Discontinued 02/06/2015 Colon Cancer Screening-Sigmoidoscopy Discontinued 02/06/2015 Abdominal Aortic Aneurysm (A AA) Screen Completed 08/09/2021 Procedures Procedure Name Priority Date/Time Associated Diagnosis [...] Narrative 02/06/2015 Ordered by an unspecified provider. us Historical Provider MD HAMMOND PROCEDURE ORDERABLES F inal Result from Last 3 Months or Most Recently Relevant to Health Maintenance Insurance [employer] [facility] HUMANA CHOICE MEDICARE PPO HUMANA CHOICE MEDICARE PPO HUMANA CHOICE MEDICARE PPO Care Teams Field Artillery Operations Specialist Relationship Specialty Start Date End Date Rita Lyn MD PCP - General 12/30/16
--- OUTSIDE RECORDS SUMMARY | 2025-01-07 00:11 | XMS_ITS | Clinical Summary ---
Author Organization [facility] Address [address] [place] [address] Care Team Providers Care Supply Chain Engineer Name Role Phone Unavailable Primary Care Provider Unavailabl e Source Comments [facility],non-owned Affiliates and Associated Physician Practices is amultiple site organization consisting of ambulatory clinics and hospital sitesin [place], [place], [place] and [place]. This disclosure is being madepursuant to the Care Everywhere program and may not contain all information available regarding this patient. Last updated 18.[facility] [employer] Allergies Active Allergy Reactions Criticality Noted Date [...] to complete this topic MENINGOCOCCAL (Group B) VACC INE SHARED DECISION-MAKING Aged Out No longer eligibl e based on patient's age to complete this topic MENINGOCOCCAL GROUPS A/C/Y/W VACCINE Aged Out No longer eligible b ased on patient's age to complete this topic
--- OUTSIDE RECORDS SUMMARY | 2025-01-07 00:11 | XMS_ITS | Encounter Summary ---
Author Organization [facility] Address [address] [place] [address] Care Team Providers Care Template Worker Name Role Phone Unavailable Primary Care Provider Unavailabl e Encounter Details Date Type Department Care Team (Late st Contact Info) Description 09/03/[address] [facility] Derm[facility] Lab [address] [place] [address] Danielle Pinzon MD [address] [place] [address] Social History Tobacco Use Types Packs/Day Years [...] DERMATOPATH TECHNICAL REPORT Routine 08/31/2018 12:00 AM INDUSTRIAL RELATIONS ANALYST documented in this encounter Results * DERMATOPATH TECHNICAL REPORT (08/31/2018 12:00 AM INDUSTRIAL RELATIONS ANALYST) Case Report Dermatopathology Report Case: [id number] Authorizing Provider: Danielle Pinzon MD Collected: 08/31/2018 12:00 AM Pathologist: Onelia Mas MD Received: 09/03/2018 07:22 AM Specimen: Skin, left central cheek 10:26 AM INDUSTRIAL RELATIONS ANALYST DERMATOPATHOLOGY LABORATORY Clinical History BCC. Non-healing. Check margins. 10:26 AM INDUSTRIAL RELATIONS ANALYST DERMATOPATHOLOGY LABORATORY Gross Description Specimen A: Received is one formalin filled container labeled with the patient's name and designated left central cheek. The specimen consists of a shave measuring [id number]. The margin is inked green. Jar 0. [facility] Dermatopathology Laboratory performed the technical component only. 8 10:26 AM [facility] DERMATOPATHOLOGY LABORATORY Embedded Images 10:26 AM [facility] DERMATOPATHOLOGY LABORATORY DISCLAIMER An external and internal positive and negative controls are appropriate for the histochemical, immunohistochemical and immunofluorescence stain(s) in this case (if any), except where stated explicitly. The performance characteristics of the stain(s) cited in this report were developed and its performance characteristic determined by the Dermatopathology Laboratory at [facility]. These tests need not be, and therefore are not, approved by the [place] Food and Drug Administration. The tests are used for clinical purposes. 8 10:26 AM [facility] DERMATOPATHOLOGY LABORATORY Pathology/Cytolog y TISSUE SPECIMEN FROM SKIN / Unknown 08/31/2018 09/03/2018 7:22 AM [facility] Danielle Pinzon MD LAB - PATHOLOGY/CYT OLOGY ORDERABLES DERMATOPATHOLOGY LABORATORY [facility] - Department of Dermatology [facility] [facility] Lab [address] [phone] documented in this encounter Visit Diagnoses Not on filedocumented in this encounter
[2025-01-07 11:56] VITALS: BP 124/71; PULSE 62; TEMP 36.6; O2SAT 99; BMI 26.9
--- NOTE | 2025-01-07 11:58 | WPDHPUPDATE1 ---
History and Physical Update Update Date/Time: 01/07/25 11:58 History and Physical has been reviewed, including an updated exam of the patient. There are NO changes in the patient's condition. Risks, benefits, and alternatives have been discussed and questions answered. Patient agrees to proceed with procedure.
--- NOTE | 2025-01-07 11:59 | W.PM.PROC2 ---
Procedure Note - Detailed Date of Procedure 01/07/25 Pre-op Diagnosis lumbar spondylosis Post-op Diagnosis Same Procedure Performed Diagnostic right Lumbar Medial Branch/Dorsal Ramus Blocks at L3, L4, L5 Treating the right L4-5, L5-S1 Facet Joints Under Fluoroscopic Guidance and with Contrast Control. (2 levels blocked). Surgeon Mc Zamora MD Automatic Machines Supervisor None. Anesthesia Local Description of Procedure INFORMED CONSENT: Risks, benefits and alternatives to the procedure were discussed in detail with the patient who expressed explicit understanding and consent to proceed. Patient was informed verbally and in written form regarding the risks associated with the procedure including the low risk of serious infection, bleeding/bruising, allergic reaction, nerve or organ injury, paralysis, procedural site pain or discomfort, worsening pain and/or mobility, failure to treat and/or disfigurement. The patient expressed explicit understanding and consent to proceed. All materials required for the procedure were available prior to procedure start. Site and side were marked prior to procedure and confirmed in the presence of the patient. PROCEDURE IN DETAIL: The patient was brought to the procedural suite and placed in the prone position. Patient was made comfortable with use of pillows under the head/chest, hips and ankles. Skin overlying the injection site on the affected side(s) was prepared broadly with ChloraPrep applicator and draped in a sterile manner. Aseptic technique was used throughout. The endplates of the vertebral bodies at the site(s) of interest were aligned in the AP view. Ipsilateral oblique angulation was utilized to optimize visualization of the intersection between the superior articulating process and transverse process at each target site. Local anesthesia was established by infiltration with approximately 5 mL of 1% lidocaine via a 1-1/2 inch 27-gauge needle. A 25-gauge 3.5 inch Quincke spinal needle was advanced until the needle tip contacted periosteum at the target site, right L3. Lateral view was utilized to confirm the appropriate placement of the needle tip just anterior to the facet line and superior to the pedicle. In the Lateral view, 0.25 mL of Multihance contrast medium was injected after negative aspiration for CSF, blood or other bodily fluid, showing appropriate extra-articular spread of contrast without evidence of intravascular, foraminal or intrathecal placement. A 0.5 mL solution of 0.5% PF bupivacaine was injected after negative repeat aspiration. Appropriate spread of the injectate was confirmed with washout of previously injected contrast. No parasthesias were elicited. Needle was removed completely intact without difficulty. The same exact procedure was repeated for all remaining levels on the ipsilateral side, right L4, L5 medial branches/dorsal ramus, modified as necessary to accommodate for the new target location with identical findings and results and no evidence of complication. Images were saved and documented in the patient chart. Patient's skin was cleaned and sterile bandage applied. The patient tolerated the procedure well. The patient was transported to the recovery area in stable condition where they were observed for an appropriate amount of time prior to discharge, without evidence of complication. Patient was instructed on the appropriate completion of a pain diary over the next 12-24 hours. The patient was instructed to avoid excessive activity for the next 48 hours, including climbing and frequent use of stairs. Showers only for 48 hours. They were instructed not to drive or operate heavy machinery for 24 hours. They are to monitor for severe headaches, fevers, chills, night sweats, erythema/swelling at the site or any other signs of infection, bleeding/bruising, bowel or bladder changes as well as new pain, weakness or numbness in the upper or lower extremity. Should they notice these changes, they are instructed to call our office immediately or report directly to the nearest Emergency Department if no answer or if after posted office hours. COMPLICATIONS: None COMMENTS: None CONTRAST WASTED: 28.5mL Multihance. Complications No immediate complications Condition Stable Disposition Same day [facility] Billing Surgery - Charge Forward: Surgery Billing
[2025-01-07 12:10] VITALS: BP 149/70; PULSE 63; RESP 16; O2SAT 97
[2025-01-07 12:15] VITALS: BP 147/68; PULSE 61; RESP 16; O2SAT 98
[2025-01-07] MEDS: BUPivacaine HCL 0.5% 10 ML AMP INFILTRATE (12:16)
[2025-01-07 12:20] VITALS: BP 85/52; PULSE 57; RESP 16; O2SAT 99
[2025-01-07 12:23] VITALS: BP 108/56
[2025-01-07 12:24] VITALS: BP 136/65; PULSE 56; RESP 16; O2SAT 96
== END 2025-01-07 12:44 | disposition home or self-care (01) ==
PROVIDERS: PCP Family Medicine; Visit Provider Anesthesiology Pain Medicine
PROC: (CPT 64494; principal; 2025-01-07 12:30)
DX: M47.817 Spondylosis without myelopathy or radiculopathy, lumbosacral region (principal); M48.061 Spinal stenosis, lumbar region without neurogenic claudication; M54.51 Vertebrogenic low back pain; M46.1 Sacroiliitis, not elsewhere classified; M16.11 Unilateral primary osteoarthritis, right hip
CPT/HCPCS: 64494; 64493; 99199

== ENCOUNTER 2025-05-11 08:57 | Emergency (ER) | payer MEDICARE, SELFPAY ==
[2025-05-11 09:05] VITALS: BP 140/80; PULSE 59; RESP 16; TEMP 36.9; O2SAT 99
--- NOTE | 2025-05-11 10:03 | ED_ITS ---
HPI - URI/Sore Throat General Chief Complaint: Upper Respiratory Infection Stated Complaint: cough/sore throat Time Seen by Provider: 05/11/25 09:50 Source: patient and RN notes reviewed Mode of arrival: ambulatory Limitations: no limitations History of Present Illness HPI Narrative: 69-year-old male presents Express Care complaining of respiratory symptoms for about 10 days. Patient reports productive cough, congestion, sore throat, fevers, chills. Patient has been trying afez-[id number]-[id number] medications and is prescription inhaler without any relief. Patient denies any chest pain, difficulty breathing, nausea, vomiting, runny nose, ear pain, or any other symptoms. Patient has a history of COPD and hypertension. Patient is a former smoker. Related Data Home Medications ?Medication ?Instructions ?Recorded ?Confirmed ?Last Taken ?Type metoprolol succinate 25 mg 25 mg PO DAILY 03/20/21 04/22/25 12/02/24 09:00 History tablet,extended release 24 hr rivaroxaban 20 mg tablet (Xarelto) 20 mg PO DAILY 03/23/21 04/22/25 07/27/21 History pravastatin 40 mg tablet 40 mg PO DAILY 10/31/22 04/22/25 Unknown History amlodipine 5 mg tablet 5 mg PO DAILY 01/08/24 04/22/25 12/02/24 09:00 History fluticasone fur. 100 mcg-umeclid 1 inh inhalation Q24H PRN 11/18/24 04/22/25 Unknown History 62.5 mcg-vilant 25 mcg shortness of breath or wheezing inhalat.powder (Trelegy Ellipta) cetirizine 10 mg tablet (24Hour 10 mg PO DAILY PRN allergy symptoms 12/24/24 04/22/25 Unknown History Allergy) Allergies Allergy/AdvReac Type Severity Reaction Status Date / Time iodine Allergy Intermediate Hypotension Verified 05/11/25 09:03 sulfamethoxazole Allergy Intermediate RASH ON Verified 05/11/25 09:03 PALMS trimethoprim Allergy Intermediate RASH ON Verified 05/11/25 09:03 PALMS Iodinated Contrast Media Allergy Unknown Hypotension Verified 05/11/25 09:03 Review of Systems Review of Systems: CONSTITUTIONAL: Denies fever, chills, body aches, or sweats. EYES: Denies visual changes, redness, or discharge. ENT: Positive congestion, sore throat. Negative for rhinorrhea or otalgia. CARDIOVASCULAR: Denies chest pain, palpitations, or edema. RESPIRATORY: Positive for cough. Negative for dyspnea or wheezing. GASTROINTESTINAL: Denies abdominal pain, nausea, vomiting, or diarrhea. GENITOURINARY: Denies dysuria or hematuria. SKIN: Denies rash or itching. MUSCULOSKELETAL: Denies back pain, joint pain, or myalgia. NEUROLOGIC: Denies headache, numbness, or weakness. PSYCHIATRIC: Denies anxiety or depression. All other systems reviewed are negative, except as documented in HPI. [facility] Past Medical History Medical History Chronic renal insufficiency, stage IV (severe) BPH (benign prostatic hyperplasia) Allergic rhinitis Obstructive sleep apnea Interstitial pulmonary fibrosis Emphysema lung Impacted cerumen of right ear Encounter for immunization Prediabetes Mixed hyperlipidemia Paroxysmal atrial fibrillation Tobacco abuse COPD (chronic obstructive pulmonary disease) Hyperthyroidism Coronary artery disease Atypical chest pain Anxiety Surgical History Surgical History History of hernia repair History of knee surgery left right x2 History of gastrointestinal surgery H/O colonoscopy Family History Family History Mother Lung cancer Father , [place] age 50 Acute myocardial infarction, Onset Age: 50 Sibling Alcoholism Cancer Hypertension Heart disease Sibling Asthma Hypertension Father Diabetes mellitus Hypertension Heart disease Mother Heart disease Social History Social History Smoking packs per day: 0.5 Smoking cigarettes per day: 10.0 Years smoked: 50 Smoking pack-years: 25.00 Smoking status: Former smoker Tobacco type: cigarettes Second hand tobacco smoke exposure: Yes (spouse) Smoking end date: 11/02/22 Alcohol intake: never Alcohol use details: rarely Substance use: never Substance use type: does not use Lack of Transportation: No Lack of Food: Never True Current Housing: I Have Housing Concerned About Future Housing: No Difficulty Paying Gas/Electric Bills: No Difficulty Paying for Meds: No Currently Unemployed: No Education: Bachelor's Degree Difficulty w/ Childcare or Family Care: No Living arrangements: with family Additional living arrangements comments: Occupation/Education: retired Gender identity (if verbalized by the patient): Male Sexual Orientation (if Verbalized by the Patient): Straight or Heterosexual Spiritual care concerns: No Comments At the time of my signature, I reviewed and agree with the nursing past medical, surgical, social, and family history. There is no relevant family history pertinent to the patient complaint. Exam Narrative: GENERAL: This is a well-nourished, well-developed adult, in no apparent distress. They are non ill-appearing, nontoxic appearing. HEAD: normocephalic, atraumatic. EYES: Sclera clear/white. Vision is grossly intact. Conjunctiva normal bilaterally. Extraocular movements intact. EARS: External ears normal, auditory canals clear and without drainage, TMs without erythema or perforation. Hearing grossly intact. NOSE: External nose normal with no obvious nasal discharge, nasal turbinates erythematous, no rhinorrhea. THROAT: Mucous membranes moist, posterior pharynx erythematous without exudate. Uvula is midline. Postnasal drip present. NECK: Neck supple, non-tender without lymphadenopathy, masses or thyromegaly. CARDIOVASCULAR: Regular rate and rhythm without murmurs, gallops, or rubs. RESPIRATORY: Clear to auscultation. Breath sounds equal bilaterally. No wheezes, rales, or rhonchi. Respiratory rate normal, respiratory effort nonlabored, no respiratory distress SKIN: warm, Dry, intact with no suspicious lesions or rash, good texture and turgor. NEURO: awake, alert, and oriented to person, place and time. There were no obvious focal neurologic abnormalities. EXTREMITIES: No joint tenderness, effusion, or edema noted. BACK: Nontender without deformity. Course Course Emergency Course: Portions of this record may have been created with voice recognition software Level of Care: Express Care Visit Vital Signs Vital signs: Vital Signs Temperature 98.5 F 05/11/25 09:05 Pulse Rate 59 L 05/11/25 09:05 Respiratory Rate 16 05/11/25 09:05 Blood Pressure 140/80 05/11/25 09:05 Pulse Oximetry 99 05/11/25 09:05 Oxygen Delivery Room Air 05/11/25 09:05 Temperature 98.5 F 05/11/25 09:05 Pulse Rate 59 L 05/11/25 09:05 Respiratory Rate 16 05/11/25 09:05 Blood Pressure 140/80 05/11/25 09:05 Pulse Oximetry 99 05/11/25 09:05 Oxygen Delivery Room Air 05/11/25 09:05 MDM - URI/Sore Throat MDM Narrative Medical decision making narrative: Rapid strep is negative. Throat culture is pending. Given length symptoms patient likely developed a bacterial sinusitis. Will go ahead and treat with Augmentin. Discussed physical exam findings. Advised supportive measures and signs/symptoms to go to the ER. Pt is appropriate for outpt treatment and f/u. Differential Diagnosis Differential diagnosis: Likely upper respiratory infection, sinusitis, viral infection and pharyngitis Lab Data Attestation: I reviewed the patient's lab results. Labs: Lab Results 05/11/25 Range/Units 10:15 POC Grp A Strep Screen Negative (Negative) Discharge Plan Discharge Clinical Impression: Sinusitis Qualifiers: Sinusitis location: unspecified location Chronicity: acute Recurrence: non- recurrent Qualified Code(s): J01.90 - Acute sinusitis, unspecified Patient Disposition: Home Condition: Stable Instructions: Antibiotic Form, Sinusitis (ED) Additional Instructions: Your rapid strep is negative. A throat culture will be sent off and if it is positive for strep you will be contacted. Take the antibiotics as directed and complete the course even if you start to feel better. You may use a Neti pot saline rinse 3 times a day with lukewarm distilled water Continue to take Tylenol or Motrin for pain. Use a humidifier or vaporizer at night. Drink plenty of water. 8-10 glasses per day. Use flonase 2 times per day for 5 days then as needed Take mucinex 2 times per day and be sure to take with 8oz of water. Follow up with Primary provider in 3-5 days Please go to the ER if he develops any difficulty breathing, worsening symptoms, nausea, vomiting, or any other concerns Patient Language: Mosotho Prescriptions: New amoxicillin-pot clavulanate 875-125 mg tablet 1 tablet PO Q12H 7 Days Qty: 14 0RF No Action metoprolol succinate 25 mg tablet extended release 24 hr 25 mg PO DAILY Patient Comments: QAM Xarelto 20 mg tablet 20 mg PO DAILY montelukast 10 mg tablet 10 mg PO QHS Qty: 90 3RF pravastatin 40 mg tablet 40 mg PO DAILY Patient Comments: QHS amlodipine 5 mg tablet 5 mg PO DAILY Patient Comments: DAILY Trelegy Ellipta 100-62.5-25 mcg blister with device 1 inh inhalation Q24H 30 Days Qty: 60 11RF Rx Instructions: One puff same time daily, rinse and spit after use tamsulosin [Flomax] 0.4 mg capsule 0.4 mg PO DAILY Qty: 90 3RF clonazepam 1 mg tablet 0.5 mg PO BID PRN (Reason: anxiety) Qty: 30 1RF Trelegy Ellipta 100-62.5-25 mcg blister with device 1 inh inhalation Q24H PRN (Reason: shortness of breath or wheezing) Rx Instructions: INHALE 1 PUFF EVERY 24 HOURS RINSE AND SPIT AFTER USE. cetirizine [24Hour Allergy] 10 mg tablet 10 mg PO DAILY PRN (Reason: allergy symptoms) albuterol sulfate 90 mcg/actuation HFA aerosol inhaler 1 inh inhalation Q4H PRN (Reason: shortness of breath or wheezing) Qty: 8.5 1RF Follow-up/Referrals: Rita Lyn MD [Primary Care Provider] - Time of Disposition: 10:16
[2025-05-11 10:17] LABS: EDSTREPNEGPOS1 Negative (Negative)
[2025-05-11 10:18] LABS: EDSTREPNEGPOS1 Negative (Negative)
== END 2025-05-11 10:22 | disposition home or self-care (01) ==
PROVIDERS: PCP Family Medicine
DX: J01.90 Acute sinusitis, unspecified (principal); Z87.891 Personal history of nicotine dependence; N40.0 Benign prostatic hyperplasia without lower urinary tract symptoms; N18.4 Chronic kidney disease, stage 4 (severe); J84.10 Pulmonary fibrosis, unspecified; J44.9 Chronic obstructive pulmonary disease, unspecified; R73.03 Prediabetes; E78.2 Mixed hyperlipidemia; I48.0 Paroxysmal atrial fibrillation; E05.90 Thyrotoxicosis, unspecified without thyrotoxic crisis or storm; I25.10 Atherosclerotic heart disease of native coronary artery without angina pectoris; F41.9 Anxiety disorder, unspecified
CPT/HCPCS: 87081; 87880; 99213; G0463

== ENCOUNTER 2025-07-04 08:49 | Outpatient (CLI) | payer MEDICARE, SELFPAY ==
--- OUTSIDE RECORDS SUMMARY | 2025-07-04 09:02 | XMS_ITS | Clinical Summary ---
Author Organization [facility] [address] Address [address] [place] [address] Care Team Providers Care [place]imerock Tower Loader Name Role Phone Rita Lyn MD Primary Care Provider [phone] Allergies Active Allergy Reactions Criticality Noted Date Comments Iodinated Contrast Media Hypotension High 12/02/2024 Iodine Unknown Medium Iodine And Iodide Containing Products Hypotension High Sulfa (Sulfonamide Antibiotics) Hives Medium Trimethoprim Rash High 12/02/2024 Medications clonazePAM (KlonoPIN) 1 mg tablet take 1 tablet by oral route every day as needed 0 0 03/08/20 16 Active Additional Information Patient taking differently:1 mgAs needed, Reported on 06/24/2025 Kevin Ellipta 100-62.5-25 mcg inhaler Every other day 11/12/19 23 Active tamsulosin (FLOMAX) 0.4 mg extended release capsule 1 capsule (0.4 mg total) Active montelukast (SINGULAIR) 10 mg tablet 12/25/19 24 Active multivitamin with minerals tablet Take 1 tablet by mouth daily Active albuterol HFA (PROVENTIL HFA,VENTOLIN HFA,PROAIR HFA) 90 mcg/actuation inhaler INHALE 1 PUFF BY MOUTH EVERY 4 HOURS NEEDED FOR SHORTNESS OF BREATH OR WHEEZING 10/01/20 24 Active doxycycline hyclate 100 mg capsule Take 1 tablet/capsule (100 mg total) by mouth daily 11/26/19 25 Active cholecalciferol (VITAMIN D-3) 5,000 unit tabletIndication s:Vitamin D deficiency Take 1 tablet (5,000 Units total) by mouth daily 01/29/20 25 026 Active metoprolol XL (TOPROL-XL) 25 mg extended release tabletIndication s:Paroxysmal atrial fibrillation (HCC) Take 1 tablet (25 mg total) by mouth daily 90 tablet 3 06/24/20 25 026 Active pravastatin (PRAVACHOL) 40 mg tablet Take 1 tablet (40 mg total) by mouth nightly 90 tablet 3 06/24/20 026 Active amLODIPine (NORVASC) 5 mg tabletIndication s:Labile hypertension Take 1 tablet (5 mg total) by mouth daily 90 tablet 3 06/24/20 25 026 Active rivaroxaban (XARELTO) 20 mg tabletIndication s:atrial fibrillation Take 1 tablet (20 mg total) by mouth daily with dinner 90 tablet 3 06/24/20 026 Active pravastatin (PRAVACHOL) 40 mg tablet Take 1 tablet (40 mg total) by mouth daily 90 tablet 3 06/14/20 24 025 Discontin ued(Reord er) metoprolol XL (TOPROL-XL) 25 mg extended release tabletIndication s:Paroxysmal atrial fibrillation (HCC) Take 1 tablet (25 mg total) by mouth daily 90 tablet 3 12/14/19 25 025 Discontin ued(Reord er) rivaroxaban (XARELTO) 20 mg tabletIndication s:atrial fibrillation Take 1 tablet (20 mg total) by mouth daily 90 tablet 3 12/14/19 025 Discontin ued(Reord er) amLODIPine (NORVASC) 2.5 mg tabletIndication s:Labile hypertension Take 1 tablet (2.5 mg total) by mouth daily 03/06/20 025 Discontin ued(Reord er) Active Problems Problem Noted Date Diagnosed Date Hyperlipidemia 06/14/2024 Elevated serum immunoglobulin free light chains 12/27/2023 Labile hypertension 12/04/2023 CORTES (dyspnea on exertion) 01/10/2022 Tobacco abuse 01/22/2021 Myalgia 01/22/2021 Encounter for screening colonoscopy 09/05/2019 Overview (09/05/2019): Added automatically from request for surgery [id number] Paroxysmal atrial fibrillation 09/11/2018 Chronic anticoagulation 09/11/2018 Nonrheumatic aortic valve insufficiency 01/25/20 18 Hyperthyroidism 09/28/2017 Assessment & Plan (08/16/2018 4:25 PM GLOBAL MARKETING COORDINATOR): Reviewed and discussed pt. Recent TSH 08/2018 [...] immediately Assessment & Plan (12/06/2017 3:31 PM GLOBAL MARKETING COORDINATOR): Reviewed and discussed pt. Recent TFT Free [...] immediately Assessment & Plan (10/22/2017 9:01 PM GLOBAL MARKETING COORDINATOR): Reviewed and discussed with pt. His previous [...] immediately Assessment & Plan (09/28/2017 1:07 PM GLOBAL MARKETING COORDINATOR): Reviewed and discussed pt. Recent labs with [...] fatigue 07/19/2017 Coronary artery disease invo lving saxman coronary artery of saxman heart without angina pectoris 06/13/2016 Overview (01/05/2017): Coronary artery disease involving saxman coronary artery of saxman heart without angina pectoris Tobacco dependence in remission 06/13/2016 Overview (01/05/2017): Tobacco abuse, in remission Dehiscence of operative wound 02/19/2010 Resolved Problems Problem Noted Date Diagnosed Date Resolved Date PVC's (premature ventricular contractions) 09/11/2018 06/14/2019 Essential hypertension 07/19/201712/03 Encounters Date Type Department Care Team Description 06/24/2025 8:00 AM CDT Office Visit [facility] Cardiology [address] [place] [address] Dawit Bradford MD Paroxysmal atrial fibrillation (HCC) (Primary Dx); Labile hypertension from Last 3 Months Surgical History Surgery Date Site/Laterality Comments HERNIA REPAIR KNEE SURGERY Left COLON SURGERY APPENDECTOMY VASECTOMY Medical History Medical History Date Comments Coronary artery disease Hypertension COPD (chronic obstructive pulmonary disease) Hyperthyroidism Arthritis GERD (gastroesophageal reflux disease) Heart [...] on file Legal Sex Male 1:03 PM GLOBAL MARKETING COORDINATOR Gender Identity Male 06/29/2021 6:30 AM CDT Sexual Orientation Straight 06/29/2021 6 :30 AM CDT Obstetrics History Last Filed Vital Signs Vital Sign Reading Time Taken Comments Blood Pressure 138/64 06/24/2025 7:50 AM CDT Pulse 55 06/24/2025 7:50 AM CDT Temperature 36.6 C (97.8 F) 01/29/2025 3:39 PM CDT Respiratory Rate 18 06/24/2025 7:50 AM CDT Oxygen Saturation 96% 06/24/2025 7:50 AM CDT Inhaled Oxygen Concentration - - Weight 87.1 kg (192 lb) 06/24/2025 7:50 AM CDT Height 180.3 cm (5' 11) 06/24/2025 7:50 AM CDT Body Mass Index 26.78 06/24/2025 7:50 AM CDT Plan of Treatment Health Maintenance Due Date Last Done Comments Fall Risk Assessment 1955 Hepatitis C Screening 1955 Prostate Cancer Screening-PSA 1956 Hepatitis B Screening 1974 Lung Cancer Screening 2006 Zoster Vaccine (1 of 2) 2006 Depression Screening 08/13/2019 08/13/2018, 12/06/2017, 10/20/2017, Additional history exists Well Visit 65+ 2021 Pneumococcal vaccine 65+ (2 of 2 - PCV) 10/03/2023 10/03/2022, 11/08/2018 Colon Cancer Screening-Colonoscopy 02/06/2025 02/06/2015 Covid-19 Vaccine (6 - 2024-2 6 season) 2025 06/27/2022, 01/14/2022, 07/04/2021, Additional history exists Influenza Vaccine (#1) 2025 , 07/17/2020, 09/06/2019 DTaP/Tdap/Td Vaccine (2 - Td or Tdap) 12/25/2031 12/24/2021 Colon Cancer Screening-CT Colonography Discontinued 02/06/2015 Colon Cancer Screening-DNA Stool Discontinued 02/07/20 Colon Cancer Screening-FIT Discontinued 02/06/2015 Colon Cancer Screening-Sigmoidoscopy Discontinued 02/06/2015 Abdominal Aortic Aneurysm (A AA) Screen Completed 08/09/2021 Procedures Procedure Name Priority Date/Time Associated Diagnosis Comments ECG 12-LEAD Routine 06/24/2025 Paroxysmal atrial fibrillation (HCC) COLONOSCOPY REPORT 02/06/2015 from Last 3 Months or Most Recently Relevant to Health Maintenance Results * ECG 12 lead (06/24/2025) 06/24/2025 Dawit Bradford MD ECG ORDERABLES Edited Result - Final * COLONOSCOPY REPORT (02/06/2015) Anatomical Region Laterality Modality Other Narrative 02/06/2015 Ordered by an unspecified provider. Yumiko Provider GI PROCEDURE ORDERABLES F inal Result from Last 3 Months or Most Recently Relevant to Health Maintenance Insurance [place] [facility] [employer] CHOICE MEDICARE PPO [employer] CHOICE MEDICARE PPO [employer] CHO[employer] MEDICARE PPO Care Teams [place] Tower Loader Relationship Specialty Start Date End Date Rita Lyn MD PCP - General 12/30/16
--- OUTSIDE RECORDS SUMMARY | 2025-07-04 09:02 | XMS_ITS | Encounter Summary ---
Author Organization [facility] Address [address] [place] [address] Care Team Providers Care Auto Glass Worker Name Role Phone Unavailable Primary Care Provider Unavailabl e Encounter Details Date Type Department Care Team (Late st Contact Info) Description 06/30/2020 Lab Requisition [facility] DermPath Lab [address] [facility], [facility] [place] [address] Danielle Pinzon MD [address] [facility] [address] [place] [address] Social History Tobacco Use Types Packs/Day Years Used Date Smoking Tobacco: Never Assessed Sex and Gender Information Value Date Recorded Sex Assigned at Not on file Legal Sex Male 8:44 AM ENERGY AUDIT ADVISOR Gender Identity Not on file Sexual Orientation Not on file documented as of this encounter Plan of Treatment Not on file documented as of this encounter Procedures Procedure Name Priority Date/Time Associated Diagnosis Comments DERMATOPATHOLOGY Routine 06/29/2020 12:0 0 AM CDT documented in this encounter Results * DERMATOPATHOLOGY (06/29/2020 12:00 AM CDT) Case Report Dermatopathology Report Case: [id number] Authorizing Provider: Danielle Pinzon MD Collected: 06/29/2020 12:00 AM Ordering Location: [facility] Care DermPath Lab Received: 06/30/2020 12:48 PM Pathologist: Brittney Fox MD Specimen: Skin, left dorsal hand 0 12:52 PM CDT DERMATOPATHOLOGY LABORATORY Final Diagnosis Specimen A. 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 0 12:52 PM CDT DERMATOPATHOLOGY LABORATORY Gross Description Specimen A: Received is one formalin filled container labeled with the patient's name and designated left dorsal hand. The specimen consists of a shave measuring [id number]. Jar 0. 0 12:52 PM CDT DERMATOPATHOLOGY [...] characteristic determined by the Dermatopathology Laboratory at [facility], directed by Dr. Bar Fox. These tests need not be, and therefore are not, approved by the [place] Food and Drug Administration. The tests are used for clinical purposes. Billing Codes Specimen Charges Stain Charges 97612 1 0 12:52 PM CDT DERMATOPATHOLOGY LABORATORY Embedded Images 0 12:52 PM CDT DERMATOPATHOLOGY LABORATORY Pathology/Cytolog y TISSUE SPECIMEN FROM SKIN / Unknown 06/29/2020 06/30/2020 12:48 PM CDT us Danielle Pinzon MD LAB - PATHOLOGY/CYTOLOGY OR DERABLES Final Result DERMATOPATHOLOGY LABORATORY [facility] - Department of Dermatology [address] [place] [address], [facility] [phone] documented in this encounter Visit Diagnoses Not on filedocumented in this encounter
--- OUTSIDE RECORDS SUMMARY | 2025-07-04 09:02 | XMS_ITS | Encounter Summary ---
Author Organization [facility] Address [address] [place] [address] Care Team Providers Care Facility Attendant Name Role Phone Unavailable Primary Care Provider Unavailabl e Encounter Details Date Type Department Care Team (Late st Contact Info) Description 09/03/2018 Lab Requisition [facility] Care DermPath Lab [address] [facility] [address] [place] [place] [address] Danielle Pinzon MD [address] [facility] [address] [place] [address] Social History Tobacco Use Types Packs/Day Years Used Date Smoking Tobacco: Never Assessed Sex and Gender Information Value Date Recorded Sex Assigned at Not on file Legal Sex Male 8:44 AM PAINT FACTORY WORKER Gender Identity Not on file Sexual Orientation Not on file documented as of this encounter Plan of Treatment Not on file documented as of this encounter Procedures Procedure Name Priority Date/Time Associated Diagnosis Comments DERMATOPATH TECHNICAL REPORT Routine 08/31/2018 12:00 AM PAINT FACTORY WORKER documented in this encounter Results * DERMATOPATH TECHNICAL REPORT (08/31/2018 12:00 AM PAINT FACTORY WORKER) Case Report Dermatopathology Report Case: [id number] Authorizing Provider: Danielle Pinzon MD Collected: 08/31/2018 12:00 AM Pathologist: Onelia Mas MD Received: 09/03/2018 07:22 AM Specimen: Skin, left central cheek 8 10:26 AM PAINT FACTORY WORKER DERMATOPATHOLOGY LABORATORY Clinical History BCC. Non-healing. Check margins. 8 10:26 AM PAINT FACTORY WORKER DERMATOPATHOLOGY LABORATORY Gross Description Specimen A: Received is one formalin filled container labeled with the patient's name and designated left central cheek. The specimen consists of a shave measuring [id number]. The margin is inked green. Jar 0. [facility] Dermatopathology Laboratory performed the technical component only. 8 10:26 AM [facility] DERMATOPATHOLOGY LABORATORY Embedded Images 10:26 AM [facility] DERMATOPATHOLOGY LABORATORY DISCLAIMER An external and internal positive and negative controls are appropriate for the histochemical, immunohistochemical and immunofluorescence stain(s) in this case (if any), except where stated explicitly. The performance characteristics of the stain(s) cited in this report were developed and its performance characteristic determined by the Dermatopathology Laboratory at [facility]. These tests need not be, and therefore are not, approved by the [place] Food and Drug Administration. The tests are used for clinical purposes. 8 10:26 AM [facility] DERMATOPATHOLOGY LABORATORY at [address] PAINT FACTORY WORKER Pathology/Cytolog y TISSUE SPECIMEN FROM SKIN / Unknown 08/31/2018 09/03/2018 7:22 AM PAINT FACTORY WORKER Danielle Pinzon MD LAB - PATHOLOGY/CYTOLOGY OR DERABLES Final Result DERMATOPATHOLOGY LABORATORY [facility] - Department of Dermatology [address] [facility] [address] [place] [address] [place] [address], [facility] [phone] documented in this encounter Visit Diagnoses Not on filedocumented in this encounter
--- OUTSIDE RECORDS SUMMARY | 2025-07-04 09:02 | XMS_ITS | Clinical Summary ---
Author Organization [facility] Address [address] [place] [address] Care Team Providers Care Sheltered Workshop Worker Name Role Phone Rita Lyn MD Primary Care Provider [phone] Allergies Active Allergy Reactions Criticality Noted Date [...] Encounters Date Type Department Care Team Description 06/17/2025 External Device Data STL ABSTRACTION Provider, Abstract 06/03/2025 Abstract [facility] Oncology and Hematology - Ajit [address] [facility] [address] [place] [address] Beau Field MD from Last 3 Months Family History Medical [...] 10:46 AM CDT Height 180.3 cm (5' 11) 12/25/2023 2:57 PM CDT Body Mass Index 26.22 12/25/2023 2:57 PM CDT Plan of Treatment Upcoming Encounters Date Type Department Care Team (Late st Contact Info) Description 07/14/2025 10:00 AM CDT Office Visit [facility] Oncology and Hematology - Ajit [address] [place] [address] Beau Field MD [address] [facility] [facility] [address] [place] [address] Health Maintenance Due Date Last [...] - Risk 60-74 years 1-dose series) 2016 Medicare [place]age ([place]) Prev entative Visit/Annual Wellness Visit 10/02/2024 INFLUENZA VACCINE (#1) 2025 Abdominal Aortic Aneurysm (AAA) Screening Completed 08/09/2021 Insurance [facility] PPO MCR Care Teams Sheltered Workshop Worker Relationship Specialty Start Date End Date Rita Lyn MD [address] [place] [address] PCP - General Family Practice 12/13/23
--- OUTSIDE RECORDS SUMMARY | 2025-07-04 09:02 | XMS_ITS | Clinical Summary ---
Author Organization [facility] Address [address] [place] [address] Care Team Providers Care Ground Products Director Name Role Phone Unavailable Primary Care Provider Unavailabl e Source Comments [facility],non-owned Affiliates and Associated Physician Practices is amultiple site organization consisting of ambulatory clinics and hospital sitesin [place], [place], [place] and [place]. This disclosure is being madepursuant to the Care Everywhere program and may not contain all information available regarding this patient. Last updated 18.[facility] Allergies Active Allergy Reactions Criticality Noted Date Comments Sulfa Drugs Urticaria Medium 2020 Medications * Be aware that medications may not be up to date on this document. Alwaysverify current medications with the patient. 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
[2025-07-04 09:07] LABS: Hematocrit 40.8 % (42.0-52.0); Hemoglobin 13.6 g/dL (14.0-18.0); Immature Granulocyte Percent A 1.0 % (0-0.5); Lymphocytes Absolute Auto 1.54 K/mm3 (0.9-3.2); Mean Corpuscular HGB Conc 33.3 g/dl (32-36); Mean Corpuscular Hemoglobin 33.2 pg (26-34); Mean Corpuscular Volume 99.5 fl (80-100); Nucleated Red Blood Cells Absolute Auto 0.000 K/mm3 (0.0-0.012); Nucleated Red Blood Cells Perc 0.0 % (0.0-0.2); Platelet Count Result 247 k/mm3 (150-375); Red Blood Count 4.10 M/mm3 (4.6-6.20); White Blood Count 5.9 K/mm3 (4.5-10.0)
[2025-07-04 13:49] LABS: Alanine Aminotransferase 24 U/L (6-50); Albumin Level 4.4 g/dL (3.5-5.1); Alkaline Phosphatase 51 U/L (38-126); Anion Gap 6 mmol/L (4-12); Aspartate Amino Transferase 66 U/L (17-59); Bilirubin,Total 0.7 mg/dL (0.2-1.3); Blood Urea Nitrogen 23 mg/dL (9-20); Calcium 9.4 mg/dL (8.4-10.2); Carbon Dioxide 28 mmol/L (22-30); Chloride 102 mmol/L (98-107); Estimated Glomerular Filt Rate 59; Glucose 110 mg/dL (65-110); Potassium 5.2 mmol/L (3.4-5.0); Sodium 136 mmol/L (137-145); Total Protein 8.1 g/dL (6.3-8.2)
[2025-07-04 13:55] LABS: Immunoglobulin A 325 mg/dL (70-400); Immunoglobulin G 1232 mg/dL (700-1600); Immunoglobulin M 312 mg/dL (40-230)
[2025-07-07 12:08] LABS: Albumin 3.7 g/dL (2.9-4.4); Alpha-1-Globulin 0.3 g/dL (0.0-0.4); Alpha-2-Globulin 0.8 g/dL (0.4-1.0); Gamma Globulin 1.3 g/dL (0.4-1.8)
[2025-07-07 15:09] LABS: Free Lambda Lt Chains, Serum 23.4 mg/L (5.7-26.3); Kappa/Lambda Ratio, Serum 1.72 (0.26-1.65)
== END 2025-07-04 08:50 | disposition home or self-care (01) ==
PROVIDERS: PCP Family Medicine; Visit Provider Internal Medicine Hematology & Oncology
DX: D72.9 Disorder of white blood cells, unspecified (principal)
CPT/HCPCS: 36415; 80053; 82784; 83521; 84155; 84165; 85025

== ENCOUNTER 2025-07-27 09:39 | Emergency (ER) | payer MEDICARE, SELFPAY ==
[2025-07-27 09:49] VITALS: BP 126/77; PULSE 65; RESP 18; TEMP 36.6; O2SAT 97
--- NOTE | 2025-07-27 09:57 | ED.BACK ---
HPI - Back Pain/Injury General Chief Complaint: Back Pain/Injury Stated Complaint: Back Pain Time Seen by Provider: 07/27/25 10:00 Source: patient, RN notes reviewed and old records reviewed Mode of arrival: ambulatory Limitations: no limitations History of Present Illness HPI Narrative: 70 year old male presents to [facility] with complaints of lower back pain since playing golf on . Patient reports history of chronic low back pain and has seen pain management for epidural and ramus blocks and his insurance carrier has denied Intracept procedure. Patient reports that pain is worse with sitting and does get some relief lying down and standing. Patient reports no numbness or tingling to his legs or any radiation of pain to his legs, denies any bowel or bladder dysfunction. MD elicited complaint: back pain Pertinent past history: other (chronic back pain) Onset (ago): day(s) (increased pain since ) Pain scale (0-10): 7 Quality: sharp (at times and is intermittent) Treatments prior to arrival: cold therapy, heat therapy and acetaminophen Work related injury: No Related Data Home Medications ?Medication ?Instructions ?Recorded ?Confirmed ?Last Taken ?Type metoprolol succinate 25 mg 25 mg PO DAILY 03/20/21 04/22/25 12/02/24 09:00 History tablet,extended release 24 hr rivaroxaban 20 mg tablet (Xarelto) 20 mg PO DAILY 03/23/21 04/22/25 07/27/21 History pravastatin 40 mg tablet 40 mg PO DAILY 10/31/22 04/22/25 Unknown History amlodipine 5 mg tablet 5 mg PO DAILY 01/08/24 04/22/25 12/02/24 09:00 History fluticasone fur. 100 mcg-umeclid 1 inh inhalation Q24H PRN 11/18/24 04/22/25 Unknown History 62.5 mcg-vilant 25 mcg shortness of breath or wheezing inhalat.powder (Trelegy Ellipta) cetirizine 10 mg tablet (24Hour 10 mg PO DAILY PRN allergy symptoms 12/24/24 04/22/25 Unknown History Allergy) Allergies Allergy/AdvReac Type Severity Reaction Status Date / Time iodine Allergy Intermediate Hypotension Verified 07/27/25 09:59 sulfamethoxazole Allergy Intermediate RASH ON Verified 07/27/25 09:59 PALMS trimethoprim Allergy Intermediate RASH ON Verified 07/27/25 09:59 PALMS Iodinated Contrast Media Allergy Unknown Hypotension Verified 07/27/25 09:59 Review of Systems Review of Systems: CONSTITUTIONAL: Denies fever, chills, or sweats. CARDIOVASCULAR: Denies chest pain, palpitations, or edema. RESPIRATORY: Denies cough or dyspnea. GASTROINTESTINAL: Denies abdominal pain, nausea, vomiting, or diarrhea. GENITOURINARY: Denies dysuria or hematuria. SKIN: Denies rash or itching. MUSCULOSKELETAL: Reports bilateral back pain across lower back no paraspinal tenderness on palpation or any radiation of pain to his legs. Joint pain or myalgia. NEUROLOGIC: Denies headache, numbness, or weakness. All systems reviewed & are unremarkable except as noted in HPI and below PMFSH Past Medical History Medical History Chronic renal insufficiency, stage IV (severe) BPH (benign prostatic hyperplasia) Allergic rhinitis Obstructive sleep apnea Interstitial pulmonary fibrosis Emphysema lung Impacted cerumen of right ear Encounter for immunization Prediabetes Mixed hyperlipidemia Paroxysmal atrial fibrillation Tobacco abuse COPD (chronic obstructive pulmonary disease) Hyperthyroidism Coronary artery disease Atypical chest pain Anxiety Surgical History Surgical History History of hernia repair History of knee surgery left right x2 History of gastrointestinal surgery H/O colonoscopy Family History Family History Mother Lung cancer Father , [place] age 50 Acute myocardial infarction, Onset Age: 50 Sibling Alcoholism Cancer Hypertension Heart disease Sibling Asthma Hypertension Father Diabetes mellitus Hypertension Heart disease Mother Heart disease Social History Social History Smoking packs per day: 0.5 Smoking cigarettes per day: 10.0 Years smoked: 50 Smoking pack-years: 25.00 Smoking status: Former smoker Tobacco type: cigarettes Second hand tobacco smoke exposure: Yes (spouse) Smoking end date: 11/02/22 Alcohol intake: never Alcohol use details: rarely Substance use: never Substance use type: does not use Lack of Transportation: No Lack of Food: Never True Current Housing: I Have Housing Concerned About Future Housing: No Difficulty Paying Gas/Electric Bills: No Difficulty Paying for Meds: No Currently Unemployed: No Education: Bachelor's Degree Difficulty w/ Childcare or Family Care: No Living arrangements: with family Additional living arrangements comments: Occupation/Education: retired Gender identity (if verbalized by the patient): Male Sexual Orientation (if Verbalized by the Patient): Straight or Heterosexual Spiritual care concerns: No Comments At time of signature, agree with nursing past medical, surgical, social and family history. There is no relevant family history pertinent to the presenting complaint Exam Narrative: GENERAL: Well-appearing, well-nourished, and in some acute distress. HEAD: Normocephalic, atraumatic. EYES: PERRLA and EOMI. NECK: Supple. No lymphadenopathy. CHEST: Clear to auscultation. No respiratory distress.SAO2 97% on room air HEART: Regular rate and rhythm. Distal pulses palpable and equal, cap refill <3 seconds ABDOMEN: Soft, nontender, nondistended, normal active bowel sounds, no palpable or pulsatile masses. No CVA tenderness MUSCULOSKELETAL: Normal range of motion and strength in all extremities; 5/5 strength with hip flexion and extension, dorsiflexion and extension, knee flexion and extension, plantar flexion and extension. Normal sensation in dermatomal distributions with sensitivity to light touch and pain. No midline back tenderness to palpation. No paraspinal tenderness. Transfers from lying to sitting to standing with increase pain verbalized to lower back with sitting and changing of positions.. SKIN: Warm, dry, no rash. No ecchymosis, erythema, open wounds to back. NEURO: No focal deficits. Alert and oriented x3. Reflexes intact. Normal gait. PSYCH: Normal mood and affect Course Course Emergency Course: Patient is aware of diagnosis, understands and agrees to treatment plan. Anticipatory guidance given. Patient agrees to follow-up as directed and is aware of reasons to seek care at the emergency department. Portions of this record may have been created with voice recognition software Level of Care: Express Care Visit Vital Signs Vital signs: Vital Signs Temperature 36.6 C 07/27/25 09:49 Pulse Rate 65 07/27/25 09:49 Respiratory Rate 18 07/27/25 09:49 Blood Pressure 126/77 07/27/25 09:49 Pulse Oximetry 97 07/27/25 09:49 Oxygen Delivery Room Air 07/27/25 09:49 Temperature 36.6 C 07/27/25 09:49 Pulse Rate 65 07/27/25 09:49 Respiratory Rate 18 07/27/25 09:49 Blood Pressure 126/77 07/27/25 09:49 Pulse Oximetry 97 07/27/25 09:49 Oxygen Delivery Room Air 07/27/25 09:49 Reviewed MDM - Back Pain/Injury MDM Narrative Medical decision making narrative: No risk factors or findings concerning for epidural abscess, diskitis, vertebral osteomyelitis, cord compression, cauda equina, vertebral fracture or bone malignancy, AAA, or pyelonephritis. Patient instructed to consider further imaging and workup through their primary care physician as an outpatient if symptoms persist. Differential Diagnosis Differential diagnosis: Likely lumbar radiculopathy, strain of lumbar region and other (exacerbation of chronic pain) Medical Records Attestation: I reviewed the patient's medical records. Critical Care Time Critical Care Time Critical Care Time: No Discharge Plan Discharge Clinical Impression: Acute exacerbation of chronic low back pain Patient Disposition: Home Condition: Stable Instructions: Acute Low Back Pain (ED), Chronic Back Pain (DC) Additional Instructions: Ice and heat to the area for 20-30 minutes Gentle stretching exercises Gentle massage Caution with lifting, bending, stooping, twisting Avoid pushing, pulling take muscle relaxants as directed--caution drowsiness and no driving or alcohol Lidocaine patches use as prescribed a back Prednisone daily for 5 days with food taken a.m. Follow-up with your PCP if not improving in 5-7 days If your symptoms persist, change or worsen significantly before you can contact your personal physician then please, without delay, go to the emergency department for further evaluation. Follow-up with PCP in 7-10 days or sooner if needed Patient Language: [place] Prescriptions: New lidocaine 5 % adhesive patch,medicated 2 patch topical DAILY Qty: 15 0RF Rx Instructions: leave on most painful area for up to 12 hrs prednisone 20 mg tablet 40 mg PO DAILY 5 Days Qty: 10 0RF cyclobenzaprine 10 mg tablet 10 mg PO TID PRN (Reason: muscle spasm) Qty: 20 0RF Rx Instructions: can not drive or operate machinery while taking and absolute no alcohol No Action metoprolol succinate 25 mg tablet extended release 24 hr 25 mg PO DAILY Patient Comments: QAM Xarelto 20 mg tablet 20 mg PO DAILY montelukast 10 mg tablet 10 mg PO QHS Qty: 90 3RF pravastatin 40 mg tablet 40 mg PO DAILY Patient Comments: QHS amlodipine 5 mg tablet 5 mg PO DAILY Patient Comments: DAILY Trelegy Ellipta 100-62.5-25 mcg blister with device 1 inh inhalation Q24H 30 Days Qty: 60 11RF Rx Instructions: One puff same time daily, rinse and spit after use tamsulosin [Flomax] 0.4 mg capsule 0.4 mg PO DAILY Qty: 90 3RF Trelegy Ellipta 100-62.5-25 mcg blister with device 1 inh inhalation Q24H PRN (Reason: shortness of breath or wheezing) Rx Instructions: INHALE 1 PUFF EVERY 24 HOURS RINSE AND SPIT AFTER USE. cetirizine [24Hour Allergy] 10 mg tablet 10 mg PO DAILY PRN (Reason: allergy symptoms) albuterol sulfate 90 mcg/actuation HFA aerosol inhaler 1 inh inhalation Q4H PRN (Reason: shortness of breath or wheezing) Qty: 8.5 1RF clonazepam 1 mg tablet 0.5 mg PO BID PRN (Reason: anxiety) Qty: 30 1RF Follow-up/Referrals: Rita Lyn MD [Primary Care Provider, Family Practice] Time of Disposition: 10:40 Quality [place] Coma Scale Eyes: Open Verbal: Oriented and Alert Motor: Follows Commands [place] Coma Total Score: 15
== END 2025-07-27 10:40 | disposition home or self-care (01) ==
PROVIDERS: Emergency Provider Registered Nurse; PCP Family Medicine
DX: M54.50 Low back pain, unspecified (principal); G89.29 Other chronic pain; Z87.891 Personal history of nicotine dependence; N40.0 Benign prostatic hyperplasia without lower urinary tract symptoms; N18.5 Chronic kidney disease, stage 5; R73.03 Prediabetes; E78.2 Mixed hyperlipidemia; I48.91 Unspecified atrial fibrillation; J84.10 Pulmonary fibrosis, unspecified; J44.9 Chronic obstructive pulmonary disease, unspecified; E05.90 Thyrotoxicosis, unspecified without thyrotoxic crisis or storm; I25.10 Atherosclerotic heart disease of native coronary artery without angina pectoris; F41.9 Anxiety disorder, unspecified; Z79.01 Long term (current) use of anticoagulants
CPT/HCPCS: 99213; G0463